=== PATIENT | female | born 1960 | race Caucasian/White ===

== ENCOUNTER → 2017-01-30 | Outpatient (REF) | payer OTHER ==
[2017-01-30 17:10] LABS: ALBUMIN 3.7 GM/DL (3.2-5.2); ALBUMIN/GLOBULIN RATIO 1.28 (1.00-1.93); ALKALINE PHOSPHATASE 80 U/L (45-117); ALT/SGPT 36 U/L (12-78); ANION GAP 9 MEQ/L (8-16); AST/SGOT 27 U/L (15-37); BILIRUBIN,TOTAL 0.4 MG/DL (0.2-1.0); BLOOD UREA NITROGEN 11 MG/DL (7-18); CALCIUM LEVEL 9.1 MG/DL (8.5-10.1); CARBON DIOXIDE LEVEL 33 MEQ/L (21-32); CHLORIDE LEVEL 100 MEQ/L (98-107); CHOLESTEROL LEVEL 212 MG/DL (<200); CREATININE FOR GFR 0.68 MG/DL (0.55-1.02); GLOMERULAR FILTRATION RATE > 60.0 (>51); GLUCOSE, FASTING 125 MG/DL (70-105); POTASSIUM SERUM 3.5 MEQ/L (3.5-5.1); SODIUM LEVEL 142 MEQ/L (136-145); TOTAL PROTEIN 6.6 GM/DL (6.4-8.2); TRIGLYCERIDES LEVEL 325 MG/DL (<150)
== END ==
LOC: M SFHCSACK 12:00
PROVIDERS: ATTEND Physician Assistant
DX: I10 Essential (primary) hypertension (principal); E11.9 Type 2 diabetes mellitus without complications; E78.5 Hyperlipidemia, unspecified; E03.9 Hypothyroidism, unspecified

== ENCOUNTER → 2017-05-13 | Outpatient (REF) | payer OTHER ==
[~2017-05-13] MED LIST: ALBU17IN INH; CALC600T31 PO; CITR500T PO; CLON1TAB PO; DICY1CAP8 PO; HUMA75VL SC; LOSA100T5 PO; MAGN500C PO; MELA10CA PO; METF10004 PO; METO1TAB33 PO; OMEG1CAP16 PO; PARO20TA4 PO; PROBCAP4 PO; SYNT50TA PO; VITA100067 PO; VITA500T PO
[2017-05-13 16:24] LABS: ALBUMIN 3.4 GM/DL (3.2-5.2); ALBUMIN/GLOBULIN RATIO 1.31 (1.00-1.93); ALKALINE PHOSPHATASE 73 U/L (45-117); ALT/SGPT 42 U/L (12-78); ANION GAP 6 MEQ/L (8-16); AST/SGOT 25 U/L (15-37); BILIRUBIN,TOTAL 0.4 MG/DL (0.2-1.0); BLOOD UREA NITROGEN 9 MG/DL (7-18); CALCIUM LEVEL 8.9 MG/DL (8.5-10.1); CARBON DIOXIDE LEVEL 32 MEQ/L (21-32); CHLORIDE LEVEL 101 MEQ/L (98-107); CHOLESTEROL LEVEL 179 MG/DL (<200); CREATININE FOR GFR 0.63 MG/DL (0.55-1.02); FREE T4 1.11 NG/DL (0.76-1.46); GLOMERULAR FILTRATION RATE > 60.0 (>51); GLUCOSE, FASTING 91 MG/DL (70-105); POTASSIUM SERUM 3.2 MEQ/L (3.5-5.1); SODIUM LEVEL 139 MEQ/L (136-145); TRIGLYCERIDES LEVEL 216 MG/DL (<150)
[2017-05-13 16:25] LABS: BASO # 0.1 K/mm3 (0.0-0.2); BASO % 0.7 % (0.0-1.0); EOS # 0.4 K/mm3 (0.0-0.50); EOS % 3.5 % (0.0-3.0); LARGE UNSTAINED CELL # 0.2 K/mm3 (0.0-0.4); LARGE UNSTAINED CELL % 1.7 % (0.0-4.0); LYMPH # 3.5 K/mm3 (1.5-4.5); LYMPH % 32.7 % (24.0-44.0); MEAN CORPUSCULAR HEMOGLOBIN 30.4 pg (27.0-33.0); MEAN CORPUSCULAR HGB CONC 34.3 g/dl (32.0-36.5); MEAN CORPUSCULAR VOLUME 88.6 fl (80.0-96.0); MONO # 0.6 K/mm3 (0.0-0.8); MONO % 5.5 % (0.0-5.0); NEUTROPHILS # 5.8 K/mm3 (1.8-7.7); NEUTROPHILS % 55.9 % (36.0-66.0); PLATELET COUNT, AUTOMATED 325 k/mm3 (150-450); RED CELL DISTRIBUTION WIDTH 13.6 % (11.5-14.5); WHITE BLOOD COUNT 10.3 K/mm3 (4.0-10.0)
== END ==
LOC: M SFHCSACK 11:36
PROVIDERS: ATTEND Physician Assistant
DX: I10 Essential (primary) hypertension (principal); E03.9 Hypothyroidism, unspecified; E11.9 Type 2 diabetes mellitus without complications; E78.5 Hyperlipidemia, unspecified

== ENCOUNTER 2017-05-22 07:36 | Day surgery (SDC) | payer OTHER ==
[~2017-05-22] VITALS: Ht 167.6 cm; Wt 95.3 kg
[~2017-05-22 07:36] MED LIST changes: +ACETAMINOPHEN 325 MG TAB PO PRN; +ACETYLCHOLINE OPHTH SOLN 1% 2ML (MIOCHOL-E) As Ordered ONE; +BALANCED SALT IRRIGATION SOLUTION 500ML BAG (FOR OR EYE MACHINE) As Ordered ONE; +CYCLOPENTOLATE 2% OPHTH SOLN 2ML BTL OD ONE; +HEALON DUET (HEALON 10MG/ML 0.55ML & HEALON ENDOCOAT 30MG/ML 0.85ML) As Ordered ONE; +LIDOCAINE 1% SDV 5 ML VIAL As Ordered ONE; +LIDOCAINE 4% INJ 5 ML AMP OU ONE; +OFLOXACIN 0.3 % (OCUFLOX) OPTH SOL 5ML OD ONE; +PHENYLEPHRINE 2.5% OPHTH SOL 2ML OD ONE; +POVIDONE-IODINE 5% OPHTH PREP SOL 30ML As Ordered ONE; +PROPARACAINE 0.5% OPHTH SOL 15ML XX PRN; +TROPICAMIDE 1% OPHTH SOLN 2ML OD ONE
[2017-05-22] MEDS ORDERED: LIDOCAINE 4% INJ 5 ML AMP As Ordered ONE (09:37)
[2017-05-22] MEDS ORDERED: LR 500 ML IV ONE (09:45)
[2017-05-22] MEDS ORDERED: fentaNYL 100 MCG/2 ML INJECTION (J3010) As Ordered ONE (10:15)
[2017-05-22] MEDS ORDERED: MIDAZOLAM INJ 2 MG/2 ML VIAL (J2250) As Ordered ONE (10:15)
[2017-05-22] MEDS ORDERED: AcetaZOLAMIDE 500 MG ER CAP As Ordered ONE (10:51)
[2017-05-22] MEDS ORDERED: TRIMETHOBENZAMIDE 300 MG CAP PO PRN (11:00)
[2017-05-22] MEDS ORDERED: AcetaZOLAMIDE 500 MG ER CAP PO ONE (11:00)
[2017-05-22] MEDS ORDERED: KETOROLAC 0.5% OPHTH SOLN OD ONE (11:00)
[2017-05-22 11:15] VITALS: BP 141/73
--- NOTE | 2017-05-23 10:32 | RO ---
DATE OF PROCEDURE: 05/22/2017 PREPROCEDURE DIAGNOSIS: Age related nuclear cataract right eye. POSTPROCEDURE DIAGNOSIS: Age related nuclear cataract right eye. PROCEDURE: Femtosecond cataract extraction with posterior chamber intraocular lens. The lens used was [id number] diopter. SURGEON: Angelika Foreman MD PURCHASING INTERN: ANESTHESIA: Topical sedation. DESCRIPTION OF PROCEDURE: The patient was brought to the operating room and put under the femtosecond laser. A lid speculum was placed between the lids, and the laser was lowered on. Docking was achieved with good suction. The laser procedure was performed with no difficulty. The laser was then removed from the eye, and the lid speculum was removed. The laser was moved over to the operating microscope and prepped and draped in the usual fashion. A lid speculum was placed between the lids. The eye was fixated. The side port incision was opened up with a spatula. 1% non-preservative lidocaine was instilled; then, viscoelastic was instilled. The main incision was then opened with the spatula. The capsulorrhexis was removed from the eye with the Utrata forceps. The lens was then hydrodissected, and a phacoemulsification unit was used to make a groove in the nucleus and one meridian. The nucleus was cracked into four quadrants, and then each quadrant was removed with the phacoemulsification unit. Any remaining cortex was removed with the irrigation and aspiration (I and A) unit. The capsular bag was refilled with viscoelastic. A posterior chamber intraocular lens was placed in the capsular bag. The remaining viscoelastic was removed. The wound was hydrated. Miochol and cefuroxime were instilled. The wound was watertight. The patient tolerated the procedure well and went to the recovery room in stable condition.
== END 2017-05-22 11:15 | disposition home or self-care (01) ==
LOC: M SDC 07:36
PROVIDERS: ATTEND Ophthalmology
DX: H25.11 Age-related nuclear cataract, right eye (principal); I10 Essential (primary) hypertension; E11.9 Type 2 diabetes mellitus without complications; E03.9 Hypothyroidism, unspecified; K76.0 Fatty (change of) liver, not elsewhere classified; K52.9 Noninfective gastroenteritis and colitis, unspecified; K21.9 Gastro-esophageal reflux disease without esophagitis; M32.9 Systemic lupus erythematosus, unspecified; F41.9 Anxiety disorder, unspecified; J45.909 Unspecified asthma, uncomplicated; R51 Headache; R06.83 Snoring; Z88.0 Allergy status to penicillin; Z88.1 Allergy status to other antibiotic agents; Z79.899 Other long term (current) drug therapy; Z79.4 Long term (current) use of insulin
CPT/HCPCS: 66984; J2250; J3010

== ENCOUNTER → 2017-07-17 | Outpatient (CLI) | payer OTHER ==
[~2017-07-17] MED LIST changes: -ACETAMINOPHEN 325 MG TAB PO PRN; -ACETYLCHOLINE OPHTH SOLN 1% 2ML (MIOCHOL-E) As Ordered ONE; -BALANCED SALT IRRIGATION SOLUTION 500ML BAG (FOR OR EYE MACHINE) As Ordered ONE; -CYCLOPENTOLATE 2% OPHTH SOLN 2ML BTL OD ONE; -HEALON DUET (HEALON 10MG/ML 0.55ML & HEALON ENDOCOAT 30MG/ML 0.85ML) As Ordered ONE; -LIDOCAINE 1% SDV 5 ML VIAL As Ordered ONE; -LIDOCAINE 4% INJ 5 ML AMP OU ONE; -OFLOXACIN 0.3 % (OCUFLOX) OPTH SOL 5ML OD ONE; -PHENYLEPHRINE 2.5% OPHTH SOL 2ML OD ONE; -POVIDONE-IODINE 5% OPHTH PREP SOL 30ML As Ordered ONE; -PROPARACAINE 0.5% OPHTH SOL 15ML XX PRN; -TROPICAMIDE 1% OPHTH SOLN 2ML OD ONE
--- NOTE | 2017-07-24 08:39 | REPMRS ---
Patient History The patient states she has not had a clinical breast exam in over a year. Family history of breast cancer in paternal grandmother at age 58. Digital Woman Screen Mammo: July 17, 2017 - Exam #: [id number] Bilateral CC and MLO view(s) were taken. Technologist: Susy Castro, Technologist Prior study comparison: 2013, digital bilateral screening mammo, performed at [facility]. October 12, 2010, digital bilateral screening mammo, performed at [facility]. FINDINGS: There are scattered fibroglandular densities. There has been no change in the appearance of the mammogram from the prior studies. There is a mild amount of scattered fibroglandular density which is fairly symmetric. There is no interval development of dominant mass, architectural distortion, or clustered microcalcification suggestive of malignancy. ASSESSMENT: BI-RADS/ACR category 1 mammogram. Negative. Recommendation Routine screening mammogram in 1 year (for women over age 40). This mammogram was interpreted with the aid of an FDA-approved computer-aided dectection system. Electronically Signed By: Sukh Ann MD 07/24/17 0839
== END ==
LOC: M WHC 15:22
PROVIDERS: ATTEND Physician Assistant
DX: Z12.31 Encounter for screening mammogram for malignant neoplasm of breast (principal); Z80.3 Family history of malignant neoplasm of breast

== ENCOUNTER 2017-10-02 10:23 | Day surgery (SDC) | payer OTHER ==
[~2017-10-02] VITALS: Ht 167.6 cm; Wt 101.1 kg
[~2017-10-02 10:23] MED LIST changes: +ACETAMINOPHEN 325 MG TAB PO PRN; +BSS with VANC/TOB/EPI for EYE CASES IR ONE; +CO Q100C10 PO; +CYCLOPENTOLATE 2% OPHTH SOLN 2ML BTL OS ONE; +LIDOCAINE 3.5 % 1ML OPHTH TOPICAL GEL OU ONE; +LUTECAP2 PO; +MIDAZOLAM INJ 2 MG/2 ML VIAL (J2250) As Ordered ONE; +OFLOXACIN 0.3 % (OCUFLOX) OPTH SOL 5ML OS ONE; +PHENYLEPHRINE 2.5% OPHTH SOL 2ML OS ONE; +PHENYLEPHRINE HCL 10 % OPHTH. SOL 5ML OS PRN; +PROPARACAINE 0.5% OPHTH SOL 15ML OS PRN; +SUPETAB25 PO; +TROPICAMIDE 1% OPHTH SOLN 2ML OS ONE; +VITA100054 PO; +fentaNYL 100 MCG/2 ML INJECTION (J3010) As Ordered ONE
[2017-10-02] MEDS ORDERED: LR 1,000 ML IV ONE (10:30)
[2017-10-02] MEDS ORDERED: TRIMETHOBENZAMIDE 300 MG CAP PO PRN (10:30)
[2017-10-02] MEDS ORDERED: AcetaZOLAMIDE 500 MG ER CAP PO ONE (10:30)
[2017-10-02] MEDS ORDERED: TROPICAMIDE 1% OPHTH SOLN 2ML As Ordered ONE (11:41)
[2017-10-02] MEDS ORDERED: PHENYLEPHRINE 2.5% OPHTH SOL 2ML As Ordered ONE (11:41)
[2017-10-02] MEDS ORDERED: OFLOXACIN 0.3 % (OCUFLOX) OPTH SOL 5ML As Ordered ONE (11:41)
[2017-10-02] MEDS ORDERED: CYCLOPENTOLATE 2% OPHTH SOLN 2ML BTL As Ordered ONE (11:41)
[2017-10-02] MEDS ORDERED: HEALON DUET (HEALON 10MG/ML 0.55ML & HEALON ENDOCOAT 30MG/ML 0.85ML) As Ordered ONE (12:42)
[2017-10-02] MEDS ORDERED: POVIDONE-IODINE 5% OPHTH PREP SOL 30ML As Ordered ONE (12:42)
[2017-10-02] MEDS ORDERED: LIDOCAINE 1% SDV 5 ML VIAL As Ordered ONE (12:42)
[2017-10-02] MEDS ORDERED: MOXIFLOXACIN IN BSS 0.25MG/0.25ML INTRACAMERAL INJ (OR EYE ONLY)(J2280) As Ordered ONE (12:42)
[2017-10-02] MEDS ORDERED: TRIAMCINOLONE PRES FR 40 MG/ML 1ML(TRIESENCE)(OR EYE ONLY)(J3300 PER 1MG) As Ordered ONE (12:42)
--- NOTE | 2017-10-02 13:42 | RO ---
DATE OF PROCEDURE: 10/02/2017 DATE OF PROCEDURE: PREPROCEDURE DIAGNOSIS: Cataract of left eye. POSTPROCEDURE DIAGNOSIS: Cataract of left eye. PROCEDURE: Femtosecond laser and phacoemulsification of the intraocular lens with lens implantation left eye. Intraocular lens power used was Hoya, 14.5 diopter. SURGEON: Sheryl Arellano MD AUTOMATIC LOG CUT OFF SAWYER: None. ANESTHESIA: Local IV standby. FINDINGS: Cataract of left eye. COMPLICATIONS: None. DESCRIPTION OF PROCEDURE: The patient was brought to the operating room and laid in supine position. A lid speculum was placed, and patient was brought under the femtosecond laser. After the satisfactory placement of the patient interface, primary incision, secondary incision, and arcuate incisions with lens fragmentation was done without any complication per plan. The patients interface was then removed and lid speculum removed. Patient was placed under the microscope. The eye was prepped and draped in a sterile fashion for ophthalmic surgery. Lid speculum was placed. The secondary incision was opened, and EndoCoat was injected into the anterior chamber. The temporal clear corneal incision was then opened and capsulorrhexis removed, followed by hydrodissection. This was followed by phacoemulsification of the lens within the capsular bag. Cortical material was then aspirated, and Healon was injected into the capsular bag. Intraocular lens was then placed. Excess Healon was aspirated. Wound was hydrated. The lid speculum was removed, and patient was returned to the recovery room in stable condition.
[2017-10-02 13:55] VITALS: BP 161/79
== END 2017-10-02 14:12 | disposition home or self-care (01) ==
LOC: M SDC 10:23
PROVIDERS: ATTEND Ophthalmology
DX: H26.9 Unspecified cataract (principal); I10 Essential (primary) hypertension; E10.9 Type 1 diabetes mellitus without complications; E03.9 Hypothyroidism, unspecified; K76.0 Fatty (change of) liver, not elsewhere classified; R19.7 Diarrhea, unspecified; K21.9 Gastro-esophageal reflux disease without esophagitis; F41.9 Anxiety disorder, unspecified; F32.9 Major depressive disorder, single episode, unspecified; R51 Headache; J45.909 Unspecified asthma, uncomplicated; E55.9 Vitamin D deficiency, unspecified; R06.83 Snoring; E78.5 Hyperlipidemia, unspecified; Z88.0 Allergy status to penicillin; Z88.1 Allergy status to other antibiotic agents; Z79.899 Other long term (current) drug therapy; Z79.4 Long term (current) use of insulin; Z79.82 Long term (current) use of aspirin; Z90.710 Acquired absence of both cervix and uterus
CPT/HCPCS: 36415; 66984; 82947; J2250; J2280; J3010; J3300

== ENCOUNTER 2017-11-25 14:15 | Emergency (ER) | payer OTHER ==
[2017-11-25 18:26] LABS: KETONE, URINE AUTO RFX NEGATIVE (NEGATIVE); MUCUS, URINE RFX SMALL (NEGATIVE); NITRITE, URINE AUTO RFX NEGATIVE (NEGATIVE); RBC, URINE AUTO RFX 9 /HPF (0-3); SPECIFIC GRAVITY UR AUTO RFX 1.017 (1.002-1.035); SQUAM EPITHELIAL CELL UR AURFX 1 /HPF (0-6)
[2017-11-25 18:59] LABS: LEUKOCYTE ESTERASE UR AUTO RFX 2+ (NEGATIVE); WBC, URINE AUTO RFX 34 /HPF (0-3)
[2017-11-25 19:09] LABS: BASO # 0.1 10^3/uL (0.0-0.2); BASO % 0.6 % (0.0-1.0); EOS # 0.4 10^3/uL (0.0-0.50); EOS % 2.5 % (0.0-3.0); HEMATOCRIT 39.8 % (36.0-47.0); HEMOGLOBIN 13.8 g/dl (12.0-16.0); IMMATURE GRANULOCYTE # 0.1 10^3/uL (0-0); IMMATURE GRANULOCYTE % 0.8 % (0-0); LYMPH # 3.2 10^3/uL (1.5-4.5); LYMPH % 22.8 % (24.0-44.0); MEAN CORPUSCULAR HGB CONC 34.7 g/dl (32.0-36.5); MEAN CORPUSCULAR VOLUME 86.5 fl (80.0-96.0); MONO # 0.8 10^3/uL (0.0-0.8); MONO % 5.7 % (0.0-5.0); NEUTROPHILS # 9.6 10^3/uL (1.8-7.7); NEUTROPHILS % 67.6 % (36.0-66.0); PLATELET COUNT, AUTOMATED 284 10^3/uL (150-450); RED CELL DISTRIBUTION WIDTH 13.2 % (11.5-14.5); WHITE BLOOD COUNT 14.2 10^3/uL (4.0-10.0)
[2017-11-25] MEDS: ACETAMINOPHEN 325 MG TAB PO (19:13)
[2017-11-25 19:21] LABS: POS COUNT POS FLAG
[2017-11-25 19:34] LABS: ALBUMIN 3.4 GM/DL (3.2-5.2); ALKALINE PHOSPHATASE 65 U/L (45-117); ALT/SGPT 32 U/L (12-78); ANION GAP 4 MEQ/L (8-16); AST/SGOT 15 U/L (7-37); BILIRUBIN,TOTAL 0.4 MG/DL (0.2-1.0); BLOOD UREA NITROGEN 13 MG/DL (7-18); CALCIUM LEVEL 8.5 MG/DL (8.5-10.1); CARBON DIOXIDE LEVEL 33 MEQ/L (21-32); CHLORIDE LEVEL 98 MEQ/L (98-107); CREATININE FOR GFR 0.75 MG/DL (0.55-1.30); GLOMERULAR FILTRATION RATE > 60.0 (>51); GLUCOSE, FASTING 117 MG/DL (70-100); POTASSIUM SERUM 3.9 MEQ/L (3.5-5.1); SODIUM LEVEL 135 MEQ/L (136-145); TOTAL PROTEIN 6.5 GM/DL (6.4-8.2)
[2017-11-25] MEDS: CIPROFLOXACIN 500 MG TAB PO (20:30)
== END 2017-11-25 20:30 | disposition home or self-care (01) ==
LOC: M ED 14:15
DX: I10 Essential (primary) hypertension (principal); N10 Acute pyelonephritis; E11.9 Type 2 diabetes mellitus without complications; E03.9 Hypothyroidism, unspecified; Z88.1 Allergy status to other antibiotic agents; Z88.0 Allergy status to penicillin; Z82.61 Family history of arthritis; Z82.49 Family history of ischemic heart disease and other diseases of the circulatory system
CPT/HCPCS: 71046

== ENCOUNTER → 2017-11-25 | Outpatient (REF) | payer OTHER ==
[2017-11-25 12:16] LABS: BASO # 0.1 10^3/uL (0.0-0.2); BASO % 0.6 % (0.0-1.0); EOS # 0.3 10^3/uL (0.0-0.50); EOS % 2.7 % (0.0-3.0); HEMATOCRIT 40.8 % (36.0-47.0); HEMOGLOBIN 13.9 g/dl (12.0-16.0); IMMATURE GRANULOCYTE # 0.1 10^3/uL (0-0); IMMATURE GRANULOCYTE % 0.6 % (0-0); LYMPH % 24.6 % (24.0-44.0); MEAN CORPUSCULAR HEMOGLOBIN 29.8 pg (27.0-33.0); MEAN CORPUSCULAR HGB CONC 34.1 g/dl (32.0-36.5); MEAN CORPUSCULAR VOLUME 87.4 fl (80.0-96.0); MONO # 0.8 10^3/uL (0.0-0.8); MONO % 6.3 % (0.0-5.0); NEUTROPHILS % 65.2 % (36.0-66.0); PLATELET COUNT, AUTOMATED 326 10^3/uL (150-450); RED BLOOD COUNT 4.67 10^6/uL (4.00-5.40); RED CELL DISTRIBUTION WIDTH 13.2 % (11.5-14.5); WHITE BLOOD COUNT 12.3 10^3/uL (4.0-10.0)
[2017-11-25 12:49] LABS: ESTIMATED AVERAGE GLUCOSE 214 MG/DL (60-110); HEMOGLOBIN A1c 9.1 %
[2017-11-25 12:55] LABS: ALBUMIN 3.3 GM/DL (3.2-5.2); ALBUMIN/GLOBULIN RATIO 1.18 (1.00-1.93); ALKALINE PHOSPHATASE 84 U/L (45-117); ALT/SGPT 33 U/L (12-78); ANION GAP 7 MEQ/L (8-16); AST/SGOT 19 U/L (7-37); BILIRUBIN,TOTAL 0.4 MG/DL (0.2-1.0); BLOOD UREA NITROGEN 14 MG/DL (7-18); CALCIUM LEVEL 8.8 MG/DL (8.5-10.1); CARBON DIOXIDE LEVEL 33 MEQ/L (21-32); CHLORIDE LEVEL 97 MEQ/L (98-107); CREATININE FOR GFR 0.74 MG/DL (0.55-1.30); GLOMERULAR FILTRATION RATE > 60.0 (>51); GLUCOSE, FASTING 199 MG/DL (70-100); POTASSIUM SERUM 3.7 MEQ/L (3.5-5.1); SODIUM LEVEL 137 MEQ/L (136-145); TOTAL PROTEIN 6.1 GM/DL (6.4-8.2)
== END ==
LOC: M SFHCSACK 10:25
DX: R34 Anuria and oliguria (principal); R05 Cough; E11.9 Type 2 diabetes mellitus without complications

== ENCOUNTER 2017-12-04 15:20 | Emergency (ER) | payer OTHER ==
[2017-12-04 16:31] LABS: KETONE, URINE AUTO RFX NEGATIVE (NEGATIVE); LEUKOCYTE ESTERASE UR AUTO RFX NEGATIVE (NEGATIVE); NITRITE, URINE AUTO RFX NEGATIVE (NEGATIVE); RBC, URINE AUTO RFX 8 /HPF (0-3); SPECIFIC GRAVITY UR AUTO RFX 1.014 (1.002-1.035); SQUAM EPITHELIAL CELL UR AURFX 0 /HPF (0-6); WBC, URINE AUTO RFX 3 /HPF (0-3)
[2017-12-04 17:05] LABS: BASO # 0.1 10^3/uL (0.0-0.2); BASO % 0.7 % (0.0-1.0); EOS # 0.3 10^3/uL (0.0-0.50); EOS % 2.5 % (0.0-3.0); HEMATOCRIT 38.5 % (36.0-47.0); HEMOGLOBIN 13.6 g/dl (12.0-16.0); IMMATURE GRANULOCYTE % 0.8 % (0-3.0); LYMPH # 2.7 10^3/uL (1.5-4.5); LYMPH % 23.4 % (24.0-44.0); MEAN CORPUSCULAR HEMOGLOBIN 29.9 pg (27.0-33.0); MEAN CORPUSCULAR HGB CONC 35.3 g/dl (32.0-36.5); MEAN CORPUSCULAR VOLUME 84.6 fl (80.0-96.0); MONO # 0.8 10^3/uL (0.0-0.8); MONO % 6.7 % (0.0-5.0); NEUTROPHILS # 7.5 10^3/uL (1.8-7.7); NEUTROPHILS % 65.9 % (36.0-66.0); PLATELET COUNT, AUTOMATED 320 10^3/uL (150-450); RED BLOOD COUNT 4.55 10^6/uL (4.00-5.40); RED CELL DISTRIBUTION WIDTH 13.1 % (11.5-14.5); WHITE BLOOD COUNT 11.4 10^3/uL (4.0-10.0)
[2017-12-04] MEDS ORDERED: ISOVUE-370 76% 100ML VIAL (Q9967) As Ordered (17:43)
[2017-12-04 17:45] LABS: ALBUMIN 3.2 GM/DL (3.2-5.2); ALBUMIN/GLOBULIN RATIO 1.23 (1.00-1.93); ALKALINE PHOSPHATASE 66 U/L (45-117); ALT/SGPT 34 U/L (12-78); ANION GAP 9 MEQ/L (8-16); AST/SGOT 20 U/L (7-37); BILIRUBIN,TOTAL 0.3 MG/DL (0.2-1.0); BLOOD UREA NITROGEN 10 MG/DL (7-18); CALCIUM LEVEL 8.5 MG/DL (8.5-10.1); CARBON DIOXIDE LEVEL 28 MEQ/L (21-32); CHLORIDE LEVEL 100 MEQ/L (98-107); GLOMERULAR FILTRATION RATE > 60.0 (>51); GLUCOSE, FASTING 144 MG/DL (70-100); POTASSIUM SERUM 4.1 MEQ/L (3.5-5.1); SODIUM LEVEL 137 MEQ/L (136-145); TOTAL PROTEIN 5.8 GM/DL (6.4-8.2)
[2017-12-04 17:46] LABS: LACTIC ACID SEPSIS PROTOCOL 1.9 MMOL/L (0.4-2.0)
[2017-12-04] MEDS: cloNIDine 0.2 MG TAB PO (20:30)
== END 2017-12-04 21:35 | disposition home or self-care (01) ==
LOC: M ED 15:20
DX: M54.5 Low back pain (principal); I10 Essential (primary) hypertension; R60.9 Edema, unspecified; K76.0 Fatty (change of) liver, not elsewhere classified; E11.9 Type 2 diabetes mellitus without complications; Z79.2 Long term (current) use of antibiotics; Z79.899 Other long term (current) drug therapy; Z88.1 Allergy status to other antibiotic agents; Z88.0 Allergy status to penicillin
CPT/HCPCS: Q9967

== ENCOUNTER 2017-12-05 19:37 | Inpatient (IN) | payer OTHER ==
[2017-12-05] MEDS: LABETALOL HCL 100 MG/20 ML VIAL IV ×2 (20:38→22:14)
[2017-12-05] MEDS: METOCLOPRAMIDE INJ 10MG/2ML VIAL (J2765) IV (20:39)
[2017-12-05] MEDS: diphenhydrAMINE INJ 50MG/ML VIAL (J1200) IV (20:39)
[2017-12-05] MEDS: NS 1,000 ML IV (20:39)
[2017-12-05 21:02] LABS: ANION GAP 10 MEQ/L (8-16); BLOOD UREA NITROGEN 13 MG/DL (7-18); CALCIUM LEVEL 8.5 MG/DL (8.5-10.1); CARBON DIOXIDE LEVEL 28 MEQ/L (21-32); CHLORIDE LEVEL 93 MEQ/L (98-107); CREATININE FOR GFR 0.79 MG/DL (0.55-1.30); GLOMERULAR FILTRATION RATE > 60.0 (>51); GLUCOSE, FASTING 194 MG/DL (70-100); POTASSIUM SERUM 3.8 MEQ/L (3.5-5.1); SODIUM LEVEL 131 MEQ/L (136-145)
[2017-12-05] MEDS: MORPHINE 4 MG/ML 1ML VIAL (J2270) IV (22:13)
[2017-12-05] MEDS: KETOROLAC 30 MG/ML VIAL (J1885) IV (22:13)
[2017-12-06] MEDS: LABETALOL 100 MG TAB PO (00:07)
[2017-12-06] MEDS: MAG SULF 1GM/100ML (MAG RUN) 1 GM in APPROPRIATE DILUENT 1 EA IV (00:07)
[2017-12-06] MEDS: LABETALOL HCL 100 MG/20 ML VIAL IV (00:08)
[2017-12-06] MEDS ORDERED: niCARdipine IV 40 MG in APPROPRIATE DILUENT 1 EA IV (00:15)
[2017-12-06 00:44] LABS: HEMATOCRIT 37.8 % (36.0-47.0); HEMOGLOBIN 13.4 g/dl (12.0-16.0); MEAN CORPUSCULAR HGB CONC 35.4 g/dl (32.0-36.5); MEAN CORPUSCULAR VOLUME 84.6 fl (80.0-96.0); PLATELET COUNT, AUTOMATED 322 10^3/uL (150-450); RED BLOOD COUNT 4.47 10^6/uL (4.00-5.40); RED CELL DISTRIBUTION WIDTH 12.8 % (11.5-14.5); WHITE BLOOD COUNT 16.9 10^3/uL (4.0-10.0)
[2017-12-06] MEDS ORDERED: GLUCOSE 4 GM CHEW TABLET PO (00:45)
[2017-12-06] MEDS ORDERED: GLUCAGON FOR INJ 1 MG VIAL (J1610) SC (00:45)
[2017-12-06] MEDS ORDERED: DEXTROSE 50% 50 ML SYRINGE IV (00:45)
[2017-12-06 01:35] LABS: CK-MB VALUE MASS 1.1 NG/ML (0.0-3.6); CPK CREATINE PHOSPHOKINASE 101 U/L (26-192); MB/CK RELATIVE INDEX 1.08 (< OR =4); TROPONIN I < 0.02 NG/ML (< 0.10)
[2017-12-06] MEDS ORDERED: DICYCLOMINE 10 MG CAP PO (02:00)
[2017-12-06] MEDS ORDERED: POLYVINYL ALCOHOL OPHTH SOLN 15 ML(LIQUITEARS) OU (02:00)
[2017-12-06] MEDS ORDERED: ACYCLOVIR 5% OINT 15GM EXT (02:00)
[2017-12-06] MEDS ORDERED: ALBUTEROL SULFATE 2.5 MG/0.5 ML INH NEB SOLN NEB (02:00)
[2017-12-06 02:27] LABS: BASO # 0.1 10^3/uL (0.0-0.2); BASO % 0.3 % (0.0-1.0); EOS % 0.1 % (0.0-3.0); IMMATURE GRANULOCYTE % 0.7 % (0-3.0); LYMPH # 1.2 10^3/uL (1.5-4.5); LYMPH % 7.2 % (24.0-44.0); MONO # 0.4 10^3/uL (0.0-0.8); MONO % 2.3 % (0.0-5.0); NEUTROPHILS # 15.2 10^3/uL (1.8-7.7); NEUTROPHILS % 89.4 % (36.0-66.0)
[2017-12-06] MEDS: LEVEMIR (INSULIN DETEMIR) 1 UNITS/0.01ML SC ×3 (02:51→20:48)
[2017-12-06] MEDS: clonazePAM 1 MG TAB PO ×2 (02:52→20:42)
[2017-12-06] MEDS: ACETAMINOPHEN TAB 650MG DOSE (2X325MG) PO ×4 (02:53→20:43)
[2017-12-06 02:57] LABS: BEDSIDE GLUCOSE 277 MG/DL (70-105)
[2017-12-06] MEDS: HumaLOG INSULIN (NovoLOG) PER UNIT SC ×5 (03:09→20:44)
[2017-12-06] MEDS: prednisoLONE ACET 1% OPHTH SUSP 5ML OS ×3 (03:36→20:44)
[2017-12-06] MEDS: NS 1,000 ML IV ×2 (05:50→14:37)
[2017-12-06 06:51] LABS: CPK CREATINE PHOSPHOKINASE 104 U/L (26-192); MB/CK RELATIVE INDEX 0.96 (< OR =4); TROPONIN I < 0.02 NG/ML (< 0.10)
[2017-12-06 08:13] LABS: BEDSIDE GLUCOSE 198 MG/DL (70-105)
[2017-12-06] MEDS: PARoxetine 20 MG TAB PO (08:21)
[2017-12-06] MEDS: ASPIRIN 81 MG ENTERIC TAB PO (08:21)
[2017-12-06] MEDS: LEVOTHYROXINE 50MCG TABLET (0.05MG) PO (08:21)
[2017-12-06] MEDS: METOPROLOL SUCC (TopROL XL) 100MG *XL* TAB PO (08:22)
[2017-12-06] MEDS: LACTOBACILLUS ACIDOPHILUS CAP (BACID) PO (08:22)
[2017-12-06] MEDS: MAGNESIUM CHLORIDE 64 MG TABCR (SLO MAG) PO (08:23)
[2017-12-06] MEDS: VITAMIN B COMPLEX/VIT C CAP PO (08:23)
[2017-12-06] MEDS: OCUVITE 1 TAB PO (08:23)
[2017-12-06] MEDS: ASCORBIC ACID 500 MG TAB PO (08:23)
[2017-12-06] MEDS: VITAMIN D (CHOLECALCIFEROL) 400 INTERNATIONAL UNITS TAB PO (08:24)
[2017-12-06] MEDS ORDERED: hydroCHLOROthiazide 25 MG TAB PO (09:00)
[2017-12-06] MEDS ORDERED: LEVOTHYROXINE 50MCG TABLET (0.05MG) PO (09:00)
[2017-12-06] MEDS ORDERED: IRBESARTAN 150 MG TAB PO (09:00)
[2017-12-06 12:06] LABS: BEDSIDE GLUCOSE 132 MG/DL (70-105)
[2017-12-06 12:22] LABS: APPEARANCE, URINE CLOUDY (CLEAR); BACTERIA, URINE AUTO 1+ (NEGATIVE); BILIRUBIN, URINE AUTO NEGATIVE (NEGATIVE); BLOOD, URINE BLOOD NEGATIVE (NEGATIVE); COLOR, URINE YELLOW (YELLOW); GLUCOSE, URINE (UA) AUTO 1+ mg/dL (NEGATIVE); KETONE, URINE AUTO NEGATIVE (NEGATIVE); LEUKOCYTE ESTERASE, URINE AUTO 1+ (NEGATIVE); MUCUS, URINE SMALL (NEGATIVE); NITRITE, URINE AUTO NEGATIVE (NEGATIVE); PROTEIN, URINE AUTO 2+ mg/dL (NEGATIVE); RBC, URINE AUTO 11 /HPF (0-3); SPECIFIC GRAVITY URINE AUTO 1.024 (1.002-1.035); SQUAMOUS EPITHELIAL CELL UR AU 3 /HPF (0-6); UROBILINOGEN, URINE AUTO 0.2 mg/dL (0.0-2.0); WBC, URINE AUTO 71 /HPF (0-3)
[2017-12-06 12:39] LABS: CPK CREATINE PHOSPHOKINASE 191 U/L (26-192); TROPONIN I < 0.02 NG/ML (< 0.10)
[2017-12-06 12:40] LABS: CK-MB VALUE MASS 1.3 NG/ML (0.0-3.6); MB/CK RELATIVE INDEX 0.68 (< OR =4)
[2017-12-06 13:29] LABS: MAU/CREAT RATIO 290.5 MCG/MG (0.0-30.0)
[2017-12-06] MEDS: ONDANSETRON 4MG/2ML VIAL (J2405) IV ×2 (16:06→20:44)
[2017-12-06 17:05] LABS: BEDSIDE GLUCOSE 159 MG/DL (70-105)
[2017-12-06] MEDS: ASPIRIN ENTERIC 325 MG TAB PO (17:59)
[2017-12-06] MEDS: hydroCHLOROthiazide 25 MG TAB PO (19:39)
[2017-12-06 20:55] LABS: BEDSIDE GLUCOSE 194 MG/DL (70-105)
[2017-12-06 21:18] LABS: AMPHETAMINES LEVEL URINE NEGATIVE (NEGATIVE); BARBITURATES URINE NEGATIVE (NEGATIVE); BENZODIAZEPINES URINE NEGATIVE (NEGATIVE); CANNABINOIDS URINE NEGATIVE (NEGATIVE); COCAINE METABOLITE URINE NEGATIVE (NEGATIVE); METHADONE URINE NEGATIVE (NEGATIVE); OPIATES URINE POSITIVE (NEGATIVE); PHENCYCLIDINE URINE NEGATIVE (NEGATIVE)
[2017-12-07] MEDS: ASPIRIN ENTERIC 325 MG TAB PO ×3 (06:06→22:44)
[2017-12-07] MEDS: LEVOTHYROXINE 50MCG TABLET (0.05MG) PO (06:06)
[2017-12-07] MEDS ORDERED: ASPIRIN ENTERIC 325 MG TAB As Ordered (06:10)
[2017-12-07 07:24] LABS: HEMATOCRIT 37.4 % (36.0-47.0); HEMOGLOBIN 13.2 g/dl (12.0-16.0); MEAN CORPUSCULAR HEMOGLOBIN 29.9 pg (27.0-33.0); MEAN CORPUSCULAR HGB CONC 35.3 g/dl (32.0-36.5); MEAN CORPUSCULAR VOLUME 84.6 fl (80.0-96.0); PLATELET COUNT, AUTOMATED 337 10^3/uL (150-450); RED BLOOD COUNT 4.42 10^6/uL (4.00-5.40); WHITE BLOOD COUNT 14.1 10^3/uL (4.0-10.0)
[2017-12-07 07:28] LABS: CHOLESTEROL LEVEL 209 MG/DL (<200); HDL CHOLESTEROL 44 MG/DL (>40); LDL CHOLESTEROL 119.4 MG/DL (<100); NON-HDL-C 165 MG/DL; TRIGLYCERIDES LEVEL 228 MG/DL (<150)
[2017-12-07] MEDS: HumaLOG INSULIN (NovoLOG) PER UNIT SC ×4 (07:30→21:00)
[2017-12-07 07:44] LABS: ANION GAP 9 MEQ/L (8-16); BLOOD UREA NITROGEN 10 MG/DL (7-18); CALCIUM LEVEL 8.1 MG/DL (8.5-10.1); CARBON DIOXIDE LEVEL 29 MEQ/L (21-32); CHLORIDE LEVEL 97 MEQ/L (98-107); CREATININE FOR GFR 0.72 MG/DL (0.55-1.30); GLOMERULAR FILTRATION RATE > 60.0 (>51); GLUCOSE, FASTING 116 MG/DL (70-100); POTASSIUM SERUM 3.8 MEQ/L (3.5-5.1); SODIUM LEVEL 135 MEQ/L (136-145)
[2017-12-07] MEDS: MAGNESIUM CHLORIDE 64 MG TABCR (SLO MAG) PO (08:35)
[2017-12-07] MEDS: ONDANSETRON 4MG/2ML VIAL (J2405) IV ×2 (08:35→21:54)
[2017-12-07] MEDS: amLODIPine 5 MG TAB PO (08:36)
[2017-12-07] MEDS: ASPIRIN 81 MG ENTERIC TAB PO (08:36)
[2017-12-07] MEDS: OCUVITE 1 TAB PO (08:36)
[2017-12-07] MEDS: LACTOBACILLUS ACIDOPHILUS CAP (BACID) PO (08:36)
[2017-12-07] MEDS: ASCORBIC ACID 500 MG TAB PO (08:36)
[2017-12-07] MEDS: hydroCHLOROthiazide 25 MG TAB PO (08:36)
[2017-12-07] MEDS: prednisoLONE ACET 1% OPHTH SUSP 5ML OS ×2 (08:37→21:00)
[2017-12-07] MEDS: PARoxetine 20 MG TAB PO (08:37)
[2017-12-07] MEDS: METOPROLOL SUCC (TopROL XL) 100MG *XL* TAB PO (08:37)
[2017-12-07] MEDS: VITAMIN B COMPLEX/VIT C CAP PO (08:37)
[2017-12-07] MEDS: VITAMIN D (CHOLECALCIFEROL) 400 INTERNATIONAL UNITS TAB PO (08:37)
[2017-12-07] MEDS: LEVEMIR (INSULIN DETEMIR) 1 UNITS/0.01ML SC ×2 (08:38→21:46)
[2017-12-07] MEDS: PHENAZOPYRIDINE 100 MG TAB PO ×2 (09:00→21:44)
[2017-12-07 09:07] LABS: APPEARANCE, URINE CLEAR (CLEAR); BACTERIA, URINE AUTO NEGATIVE (NEGATIVE); BILIRUBIN, URINE AUTO NEGATIVE (NEGATIVE); BLOOD, URINE BLOOD 1+ (NEGATIVE); COLOR, URINE YELLOW (YELLOW); GLUCOSE, URINE (UA) AUTO NEGATIVE (NEGATIVE); KETONE, URINE AUTO NEGATIVE (NEGATIVE); LEUKOCYTE ESTERASE, URINE AUTO 1+ (NEGATIVE); NITRITE, URINE AUTO NEGATIVE (NEGATIVE); PROTEIN, URINE AUTO 2+ mg/dL (NEGATIVE); RBC, URINE AUTO 5 /HPF (0-3); SQUAMOUS EPITHELIAL CELL UR AU 1 /HPF (0-6); UROBILINOGEN, URINE AUTO 0.2 mg/dL (0.0-2.0); WBC, URINE AUTO 16 /HPF (0-3)
[2017-12-07 11:56] LABS: BEDSIDE GLUCOSE 210 MG/DL (70-105)
[2017-12-07 17:18] LABS: BEDSIDE GLUCOSE 169 MG/DL (70-105)
[2017-12-07 21:08] LABS: BEDSIDE GLUCOSE 174 MG/DL (70-105)
[2017-12-07] MEDS: clonazePAM 1 MG TAB PO (21:44)
[2017-12-07] MEDS: ACETAMINOPHEN TAB 650MG DOSE (2X325MG) PO (21:46)
[2017-12-08] MEDS: ACETAMINOPHEN TAB 650MG DOSE (2X325MG) PO ×2 (02:20→22:13)
[2017-12-08] MEDS: ONDANSETRON 4MG/2ML VIAL (J2405) IV (02:20)
[2017-12-08 06:42] LABS: HEMATOCRIT 37.8 % (36.0-47.0); HEMOGLOBIN 13.2 g/dl (12.0-16.0); MEAN CORPUSCULAR HEMOGLOBIN 29.3 pg (27.0-33.0); MEAN CORPUSCULAR HGB CONC 34.9 g/dl (32.0-36.5); PLATELET COUNT, AUTOMATED 366 10^3/uL (150-450); RED CELL DISTRIBUTION WIDTH 12.9 % (11.5-14.5); WHITE BLOOD COUNT 13.5 10^3/uL (4.0-10.0)
[2017-12-08] MEDS: LEVOTHYROXINE 50MCG TABLET (0.05MG) PO (06:46)
[2017-12-08 06:58] LABS: ANION GAP 7 MEQ/L (8-16); BLOOD UREA NITROGEN 10 MG/DL (7-18); CALCIUM LEVEL 8.3 MG/DL (8.5-10.1); CARBON DIOXIDE LEVEL 30 MEQ/L (21-32); CHLORIDE LEVEL 97 MEQ/L (98-107); CREATININE FOR GFR 0.75 MG/DL (0.55-1.30); GLOMERULAR FILTRATION RATE > 60.0 (>51); GLUCOSE, FASTING 120 MG/DL (70-100); POTASSIUM SERUM 4.1 MEQ/L (3.5-5.1); SODIUM LEVEL 134 MEQ/L (136-145)
[2017-12-08] MEDS: HumaLOG INSULIN (NovoLOG) PER UNIT SC ×4 (07:30→21:00)
[2017-12-08] MEDS: amLODIPine 5 MG TAB PO (07:58)
[2017-12-08] MEDS: PARoxetine 20 MG TAB PO (09:00)
[2017-12-08] MEDS: PHENAZOPYRIDINE 100 MG TAB PO ×2 (09:00→21:58)
[2017-12-08] MEDS: prednisoLONE ACET 1% OPHTH SUSP 5ML OS ×2 (09:00→21:00)
[2017-12-08] MEDS: VITAMIN D (CHOLECALCIFEROL) 400 INTERNATIONAL UNITS TAB PO (09:00)
[2017-12-08] MEDS: VITAMIN B COMPLEX/VIT C CAP PO (09:00)
[2017-12-08] MEDS: ASCORBIC ACID 500 MG TAB PO (09:00)
[2017-12-08] MEDS: hydroCHLOROthiazide 25 MG TAB PO (09:00)
[2017-12-08] MEDS: LACTOBACILLUS ACIDOPHILUS CAP (BACID) PO (09:00)
[2017-12-08] MEDS: MAGNESIUM CHLORIDE 64 MG TABCR (SLO MAG) PO (09:00)
[2017-12-08] MEDS: ASPIRIN 81 MG ENTERIC TAB PO (09:00)
[2017-12-08] MEDS: OCUVITE 1 TAB PO (09:00)
[2017-12-08] MEDS: METOPROLOL SUCC (TopROL XL) 100MG *XL* TAB PO (09:00)
[2017-12-08] MEDS: LEVEMIR (INSULIN DETEMIR) 1 UNITS/0.01ML SC ×2 (09:00→22:00)
[2017-12-08 12:04] LABS: BEDSIDE GLUCOSE 197 MG/DL (70-105)
[2017-12-08 17:31] LABS: BEDSIDE GLUCOSE 202 MG/DL (70-105)
[2017-12-08] MEDS: clonazePAM 1 MG TAB PO (21:58)
[2017-12-09] MEDS: ONDANSETRON 4MG/2ML VIAL (J2405) IV (00:19)
[2017-12-09] MEDS: ASPIRIN ENTERIC 325 MG TAB PO (02:43)
[2017-12-09] MEDS: LEVOTHYROXINE 50MCG TABLET (0.05MG) PO (06:17)
[2017-12-09 06:28] LABS: HEMATOCRIT 38.1 % (36.0-47.0); HEMOGLOBIN 13.5 g/dl (12.0-16.0); MEAN CORPUSCULAR HEMOGLOBIN 29.7 pg (27.0-33.0); MEAN CORPUSCULAR HGB CONC 35.4 g/dl (32.0-36.5); MEAN CORPUSCULAR VOLUME 83.7 fl (80.0-96.0); PLATELET COUNT, AUTOMATED 348 10^3/uL (150-450); RED BLOOD COUNT 4.55 10^6/uL (4.00-5.40); WHITE BLOOD COUNT 14.2 10^3/uL (4.0-10.0)
[2017-12-09 06:55] LABS: ANION GAP 9 MEQ/L (8-16); BLOOD UREA NITROGEN 9 MG/DL (7-18); CALCIUM LEVEL 8.6 MG/DL (8.5-10.1); CARBON DIOXIDE LEVEL 29 MEQ/L (21-32); CHLORIDE LEVEL 94 MEQ/L (98-107); CREATININE FOR GFR 0.73 MG/DL (0.55-1.30); GLOMERULAR FILTRATION RATE > 60.0 (>51); GLUCOSE, FASTING 163 MG/DL (70-100); POTASSIUM SERUM 3.5 MEQ/L (3.5-5.1); SODIUM LEVEL 132 MEQ/L (136-145)
[2017-12-09 08:47] LABS: BEDSIDE GLUCOSE 160 MG/DL (70-105)
[2017-12-09] MEDS: HumaLOG INSULIN (NovoLOG) PER UNIT SC (08:57)
[2017-12-09] MEDS: PHENAZOPYRIDINE 100 MG TAB PO (08:58)
[2017-12-09] MEDS: LEVEMIR (INSULIN DETEMIR) 1 UNITS/0.01ML SC (08:58)
[2017-12-09] MEDS: OCUVITE 1 TAB PO (08:59)
[2017-12-09] MEDS: METOPROLOL SUCC (TopROL XL) 100MG *XL* TAB PO (08:59)
[2017-12-09] MEDS: ASCORBIC ACID 500 MG TAB PO (08:59)
[2017-12-09] MEDS: PARoxetine 20 MG TAB PO (09:00)
[2017-12-09] MEDS: VITAMIN D (CHOLECALCIFEROL) 400 INTERNATIONAL UNITS TAB PO (09:00)
[2017-12-09] MEDS: ASPIRIN 81 MG ENTERIC TAB PO (09:00)
[2017-12-09] MEDS: hydroCHLOROthiazide 25 MG TAB PO (09:00)
[2017-12-09] MEDS: VITAMIN B COMPLEX/VIT C CAP PO ×2 (09:00)
[2017-12-09] MEDS: LACTOBACILLUS ACIDOPHILUS CAP (BACID) PO (09:00)
[2017-12-09] MEDS: prednisoLONE ACET 1% OPHTH SUSP 5ML OS (09:00)
[2017-12-09] MEDS: MAGNESIUM CHLORIDE 64 MG TABCR (SLO MAG) PO (09:00)
[2017-12-09] MEDS: amLODIPine 10 MG TAB PO (09:01)
[2017-12-12 00:06] LABS: METANEPHRINE PLASMA 18 pg/mL (0-62); NORMETANEPHRINE PLASMA 90 pg/mL (0-145)
== END 2017-12-09 10:45 | disposition home or self-care (01) | DRG 199 ==
LOC: M ED 19:37 → M ED INP 12-06 01:40 → M ICU 12-06 07:50 → M MSPAV 12-06 15:30
DX: I16.0 Hypertensive urgency (principal); F32.9 Major depressive disorder, single episode, unspecified; E11.9 Type 2 diabetes mellitus without complications; E03.9 Hypothyroidism, unspecified; D72.829 Elevated white blood cell count, unspecified; I10 Essential (primary) hypertension; E78.5 Hyperlipidemia, unspecified; K58.9 Irritable bowel syndrome, unspecified; E66.9 Obesity, unspecified; F41.9 Anxiety disorder, unspecified; Z79.4 Long term (current) use of insulin; Z79.899 Other long term (current) drug therapy; Z88.0 Allergy status to penicillin; Z88.1 Allergy status to other antibiotic agents; Z68.36 Body mass index [BMI] 36.0-36.9, adult

== ENCOUNTER → 2018-02-10 | Outpatient (CLI) | payer OTHER | LOC: M RAD 14:42 | DX: E04.1 Nontoxic single thyroid nodule (principal) ==

== ENCOUNTER → 2018-02-10 | Outpatient (CLI) | payer OTHER | LOC: M RAD 14:39 | DX: H35.82 Retinal ischemia (principal) ==

== ENCOUNTER → 2018-04-18 | Outpatient (CLI) | payer OTHER ==
[~2018-04-18] MED LIST changes: -ACETAMINOPHEN 325 MG TAB PO PRN; -ALBU17IN INH; -BSS with VANC/TOB/EPI for EYE CASES IR ONE; -CALC600T31 PO; -CITR500T PO; -CLON1TAB PO; -CO Q100C10 PO; -CYCLOPENTOLATE 2% OPHTH SOLN 2ML BTL OS ONE; -DICY1CAP8 PO; -HUMA75VL SC; +LIDOCAINE 1% MDV 20ML VIAL As Ordered; -LIDOCAINE 3.5 % 1ML OPHTH TOPICAL GEL OU ONE; -LOSA100T5 PO; -LUTECAP2 PO; -MAGN500C PO; -MELA10CA PO; -METF10004 PO; -METO1TAB33 PO; -MIDAZOLAM INJ 2 MG/2 ML VIAL (J2250) As Ordered ONE; -OFLOXACIN 0.3 % (OCUFLOX) OPTH SOL 5ML OS ONE; -OMEG1CAP16 PO; -PARO20TA4 PO; -PHENYLEPHRINE 2.5% OPHTH SOL 2ML OS ONE; -PHENYLEPHRINE HCL 10 % OPHTH. SOL 5ML OS PRN; -PROBCAP4 PO; -PROPARACAINE 0.5% OPHTH SOL 15ML OS PRN; -SUPETAB25 PO; -SYNT50TA PO; -TROPICAMIDE 1% OPHTH SOLN 2ML OS ONE; -VITA100054 PO; -VITA100067 PO; -VITA500T PO; -fentaNYL 100 MCG/2 ML INJECTION (J3010) As Ordered ONE
== END ==
LOC: M RADPRO 11:08
DX: E04.2 Nontoxic multinodular goiter (principal); Z79.82 Long term (current) use of aspirin; Z79.4 Long term (current) use of insulin; Z79.899 Other long term (current) drug therapy; Z88.0 Allergy status to penicillin; Z88.1 Allergy status to other antibiotic agents
CPT/HCPCS: 10022

== ENCOUNTER → 2018-04-24 | Outpatient (CLI) | payer OTHER ==
[~2018-04-24] MED LIST changes: +E-Z-GAS II EFFERVESCENT PACKET (SODIUM BICARB./CITRIC ACID/SIMETHICONE) As Ordered; +E-Z-HD 98% w/w 340GM SUSP BTL As Ordered; +E-Z-PAQUE 96% w/w SUSP 176GM BTL As Ordered; -LIDOCAINE 1% MDV 20ML VIAL As Ordered
== END ==
LOC: M RAD 08:27
DX: K44.9 Diaphragmatic hernia without obstruction or gangrene (principal); R13.10 Dysphagia, unspecified
CPT/HCPCS: 74220

== ENCOUNTER → 2018-06-04 | Outpatient (CLI) | payer OTHER | LOC: M ST 14:51 | DX: R13.10 Dysphagia, unspecified (principal) ==

== ENCOUNTER → 2018-06-26 | Outpatient (REF) | payer OTHER ==
[2018-06-26 19:17] LABS: TOTAL 25(OH) VITAMIN D 71.1 NG/ML (30.0-100.0)
[2018-06-26 19:20] LABS: ESTIMATED AVERAGE GLUCOSE 174 MG/DL (60-110); HEMOGLOBIN A1c 7.7 %
[2018-06-26 19:23] LABS: ALBUMIN 3.7 GM/DL (3.2-5.2); ALBUMIN/GLOBULIN RATIO 1.37 (1.00-1.93); ALKALINE PHOSPHATASE 72 U/L (45-117); ALT/SGPT 30 U/L (12-78); ANION GAP 10 MEQ/L (8-16); AST/SGOT 24 U/L (7-37); BILIRUBIN,TOTAL 0.4 MG/DL (0.2-1.0); BLOOD UREA NITROGEN 12 MG/DL (7-18); CALCIUM LEVEL 9.2 MG/DL (8.5-10.1); CARBON DIOXIDE LEVEL 29 MEQ/L (21-32); CHLORIDE LEVEL 106 MEQ/L (98-107); CREATININE FOR GFR 1.04 MG/DL (0.55-1.30); GLOMERULAR FILTRATION RATE 58.1 (>51); GLUCOSE, FASTING 75 MG/DL (70-100); POTASSIUM SERUM 3.6 MEQ/L (3.5-5.1); SODIUM LEVEL 145 MEQ/L (136-145); TOTAL PROTEIN 6.4 GM/DL (6.4-8.2)
[2018-06-26 19:31] LABS: FREE T4 1.18 NG/DL (0.76-1.46)
[2018-06-26 20:09] LABS: BASO # 0.1 10^3/uL (0.0-0.2); BASO % 0.7 % (0.0-1.0); EOS # 0.4 10^3/uL (0.0-0.50); EOS % 2.7 % (0.0-3.0); HEMOGLOBIN 13.1 g/dl (12.0-15.5); IMMATURE GRANULOCYTE % 0.6 % (0-3.0); LYMPH # 3.6 10^3/uL (1.5-4.5); LYMPH % 24.3 % (24.0-44.0); MEAN CORPUSCULAR HEMOGLOBIN 29.6 pg (27.0-33.0); MEAN CORPUSCULAR HGB CONC 33.6 g/dl (32.0-36.5); MONO % 6.7 % (0.0-5.0); NEUTROPHILS # 9.7 10^3/uL (1.8-7.7); PLATELET COUNT, AUTOMATED 350 10^3/uL (150-450); RED BLOOD COUNT 4.43 10^6/uL (4.00-5.40); RED CELL DISTRIBUTION WIDTH 13.6 % (11.5-14.5); WHITE BLOOD COUNT 14.9 10^3/uL (4.0-10.0)
== END ==
LOC: M SFHCADAM 14:55
DX: D72.829 Elevated white blood cell count, unspecified (principal); E11.9 Type 2 diabetes mellitus without complications

== ENCOUNTER → 2018-08-21 | Outpatient (CLI) | payer OTHER | LOC: M RAD 17:21 | DX: E04.2 Nontoxic multinodular goiter (principal) | CPT/HCPCS: 76536 ==

== ENCOUNTER → 2018-09-24 | Outpatient (CLI) | payer OTHER | LOC: M RAD 16:05 | DX: H70.93 Unspecified mastoiditis, bilateral (principal) | CPT/HCPCS: 70480 ==

== ENCOUNTER 2018-10-09 08:46 | Day surgery (SDC) | payer OTHER ==
[~2018-10-09] VITALS: Ht 167.6 cm; Wt 103.0 kg
[~2018-10-09 08:46] MED LIST changes: +ACYC5OIN EXT; +ALBU17IN INH; +AMLO10TA PO; +ARTI99.0 OU; +ASPI325T25 PO; +BACITAB PO; +CALC600T31 PO; +CIPR-249 PO; +CIPR500T3 PO; +CITR500T PO; +CLON-412 PO; +CLON1TAB8 PO; +CO Q100C10 PO; +D400400C PO; +DICY1CAP8 PO; -E-Z-GAS II EFFERVESCENT PACKET (SODIUM BICARB./CITRIC ACID/SIMETHICONE) As Ordered; -E-Z-HD 98% w/w 340GM SUSP BTL As Ordered; -E-Z-PAQUE 96% w/w SUSP 176GM BTL As Ordered; +HUMA75VL SC; +HUMA75VLDS SC; +HYDR25TAB PO; +KRIL1CAP6 PO; +LOSA100T5 PO; +LUTECAP2 PO; +MAGN500C PO; +MAGN64TASA PO; +MELA10CA PO; +MELA3CAP2 PO; +METF10004 PO; +METO1TAB33 PO; +OCUVTAB PO; +OMEG1CAP16 PO; +PARO20TA4 PO; +PRED1SUS2 OS; +PROBCAP4 PO; +SUPETAB25 PO; +SYNT50TA PO; +VITA100054 PO; +VITA100067 PO; +VITA50005 PO; +VITA500T PO; +VITATAB11 PO
[2018-10-09] MEDS ORDERED: CIPRODEX OTIC SUSP 7.5ML As Ordered ONE (10:27)
[2018-10-09] MEDS ORDERED: dexameTHASONE 4 MG/ML 1ML VIAL (J1100) As Ordered ONE (10:29)
[2018-10-09] MEDS ORDERED: LIDOCAINE 2% INJ 100 MG/5 ML SDV (FOR ANES.) As Ordered ONE (10:29)
[2018-10-09] MEDS ORDERED: ONDANSETRON 4MG/2ML VIAL (J2405) As Ordered ONE ×2 (10:29→11:29)
[2018-10-09] MEDS ORDERED: PROPOFOL 200 MG/20 ML VIAL As Ordered ONE (10:29)
[2018-10-09] MEDS ORDERED: fentaNYL 100 MCG/2 ML INJECTION (J3010) As Ordered ONE (10:30)
[2018-10-09] MEDS ORDERED: MIDAZOLAM INJ 2 MG/2 ML VIAL (J2250) As Ordered ONE (10:30)
[2018-10-09] MEDS ORDERED: PERCOCET 5MG/325MG TAB As Ordered ONE (11:29)
[2018-10-09] MEDS ORDERED: LR 1,000 ML IV SCH ×2 (11:30→11:45)
[2018-10-09] MEDS ORDERED: ONDANSETRON 4MG/2ML VIAL (J2405) IV PRN (11:30)
[2018-10-09] MEDS: PERCOCET 5MG/325MG TAB PO PRN ×2 (11:34→12:01)
[2018-10-09] MEDS: HYDROMORPHONE HCL 0.5 MG/ 0.5 ML SYRINGE (J1170 PER 1) IV PRN ×2 (11:35→11:40)
[2018-10-09] MEDS: fentaNYL 100 MCG/2 ML INJECTION (J3010) IV PRN ×4 (11:49→12:21)
[2018-10-09 12:50] VITALS: BP 202/89
--- NOTE | 2018-10-28 07:51 | RO ---
DATE OF PROCEDURE: 10/09/2018 PREPROCEDURE DIAGNOSIS: Bilateral otalgia and left mastoiditis. POSTPROCEDURE DIAGNOSIS: Bilateral otalgia and left mastoiditis. Bilateral acute otitis media and right otitis externa. PROCEDURE: debridement and placement of ear wick to the right external auditory canal, and bilateral tympanostomy. SURGEON: Dr. Rajiv Child. ELEVATOR STARTER: ANESTHESIA: General. CLINICAL PREAMBLE: This is a 58-year-old woman who presented to the office yesterday complaining of bilateral otalgia worse in the left ear. She has been treated with oral antibiotics including clindamycin and Levaquin with no resolution of symptoms. CT scan of the temporal bone shows evidence of left mastoiditis. In addition, she complains of new onset of hearing difficulty. Physical examination revealed edematous right ear canal with possible fluid in the right ear. Management options including bilateral tympanostomy have been discussed. Patient understood and consented to the procedure. DESCRIPTION OF PROCEDURE: Patient was identified in pre-holding and brought to the operating room in stable condition. In the supine position, on the operating room table, the patient received general anesthesia followed by oral tracheal intubation without incident. The patient was prepped and draped in the usual fashion for the procedure. The patient's head was then turned to the left side to expose the right ear. An ear speculum was inserted and the right ear canal was visualized and found to be edematous with skin debris. Debridement of the right external auditory canal was then conducted under binocular magnification. At this time, the right tympanic membrane was clearly visualized and found to be intact. Fluid was noted in the right middle ear. A myringotomy incision was made over anterior/inferior quadrant of the right tympanic membrane. The right middle ear cleft was then suction clear of the serous fluid. A 7 mm straight shank tympanostomy tube was then inserted. At this time an ear wick was placed into the right external auditory canal. Ciprodex drops were instilled and a cotton ball was then used to occlude the ear canal. The left ear was then examined under binocular magnifications. There was no evidence of otitis externa for the left ear. The left tympanic membranes was intact with evidence of serous fluid. Myringotomy incision was made over the anterior/inferior quadrant of the tympanic membrane. Ciprodex fluid was suctioned clear from the left middle ear cleft. A 7 mm straight shank tympanostomy tube was inserted. Ciprodex drops were instilled and cotton ball was used to occlude the left ear canal. At the end of procedure, sponge and instruments counts were correct. There were no complications. Estimated blood loss was less than 1 ml. Anesthesia was reversed and patient was extubated and brought to the recovery room in stable condition. FERNANDA
== END 2018-10-09 13:05 | disposition home or self-care (01) ==
LOC: M SDC 08:46
PROVIDERS: ATTEND Otolaryngology
DX: H92.03 Otalgia, bilateral (principal); H70.002 Acute mastoiditis without complications, left ear; H60.91 Unspecified otitis externa, right ear; I10 Essential (primary) hypertension; E78.5 Hyperlipidemia, unspecified; J45.909 Unspecified asthma, uncomplicated; E11.9 Type 2 diabetes mellitus without complications; E03.9 Hypothyroidism, unspecified; Z86.718 Personal history of other venous thrombosis and embolism; Z88.0 Allergy status to penicillin; E66.9 Obesity, unspecified; Z98.41 Cataract extraction status, right eye; Z98.42 Cataract extraction status, left eye; Z96.1 Presence of intraocular lens; F41.9 Anxiety disorder, unspecified; F32.9 Major depressive disorder, single episode, unspecified
CPT/HCPCS: 69436; J1100; J1170; J2250; J2405; J3010

== ENCOUNTER → 2018-11-21 | Outpatient (REF) | payer OTHER | LOC: M LAB REF 14:15 | PROVIDERS: ATTEND Physician Assistant Medical | DX: H92.11 Otorrhea, right ear (principal) ==

== ENCOUNTER → 2018-12-24 | Outpatient (REF) | payer OTHER ==
[2018-12-24 20:26] LABS: BASO # 0.1 10^3/uL (0.0-0.2); BASO % 0.6 % (0.0-1.0); EOS # 0.4 10^3/uL (0.0-0.50); EOS % 3.3 % (0.0-3.0); HEMATOCRIT 38.1 % (36.0-47.0); HEMOGLOBIN 12.6 g/dl (12.0-15.5); MEAN CORPUSCULAR HEMOGLOBIN 28.2 pg (27.0-33.0); MEAN CORPUSCULAR HGB CONC 33.1 g/dl (32.0-36.5); MEAN CORPUSCULAR VOLUME 85.2 fl (80.0-96.0); MONO # 0.7 10^3/uL (0.0-0.8); MONO % 6.5 % (0.0-5.0); NEUTROPHILS # 6.6 10^3/uL (1.8-7.7); NEUTROPHILS % 61.2 % (36.0-66.0); PLATELET COUNT, AUTOMATED 322 10^3/uL (150-450); RED BLOOD COUNT 4.47 10^6/uL (4.00-5.40); WHITE BLOOD COUNT 10.7 10^3/uL (4.0-10.0)
[2018-12-24 20:44] LABS: HEMOGLOBIN A1c 7.7 %
[2018-12-24 21:03] LABS: ALBUMIN 2.9 GM/DL (3.2-5.2); BILIRUBIN,TOTAL 0.3 MG/DL (0.2-1.0); CALCIUM LEVEL 7.9 MG/DL (8.5-10.1); CHOLESTEROL RISK RATIO 6.333 (<5); CREATININE FOR GFR 1.1 MG/DL (0.55-1.30); FREE T4 1.13 NG/DL (0.76-1.46); GLOMERULAR FILTRATION RATE 54.3 (>51); POTASSIUM SERUM 3.9 MEQ/L (3.5-5.1); THYROID STIMULATING HORMONE 4.14 uIU/ML (0.358-3.740); TOTAL 25(OH) VITAMIN D 38.5 NG/ML (30.0-100.0); TOTAL PROTEIN 5.3 GM/DL (6.4-8.2)
[2018-12-24 21:12] LABS: CREATININE, URINE 52.5 MG/DL; MAU/CREAT RATIO 4571.4 MCG/MG (0.0-30.0)
== END ==
LOC: M SFHCADAM 14:10
PROVIDERS: ATTEND Family Medicine
DX: D72.829 Elevated white blood cell count, unspecified (principal); E11.9 Type 2 diabetes mellitus without complications; E03.9 Hypothyroidism, unspecified; E55.9 Vitamin D deficiency, unspecified; I11.9 Hypertensive heart disease without heart failure; E78.5 Hyperlipidemia, unspecified

== ENCOUNTER → 2019-01-22 | Outpatient (REF) | payer OTHER ==
[~2019-01-22] MED LIST changes: +ASPI-255 PO; -ASPI325T25 PO
[2019-01-22 19:50] LABS: CALCIUM LEVEL 8.5 MG/DL (8.5-10.1); CREATININE FOR GFR 1.13 MG/DL (0.55-1.30); GLOMERULAR FILTRATION RATE 52.6 (>51); POTASSIUM SERUM 3.9 MEQ/L (3.5-5.1)
== END ==
LOC: M SFHCADAM 13:24
PROVIDERS: ATTEND Family Medicine
DX: I11.9 Hypertensive heart disease without heart failure (principal); R80.9 Proteinuria, unspecified

== ENCOUNTER → 2019-01-24 | Outpatient (REF) | payer OTHER ==
[2019-01-25 10:41] LABS: TOTAL PROTEIN 24 HOUR URINE 5808.7 MG/24HR (50-150)
[2019-01-25 10:50] LABS: URINE TOTAL PROTEIN 400.6 MG/DL (0-12)
== END ==
LOC: M LAB REF 11:30
PROVIDERS: ATTEND Family Medicine
DX: I11.9 Hypertensive heart disease without heart failure (principal); R80.9 Proteinuria, unspecified

== ENCOUNTER → 2019-02-16 | Outpatient (CLI) | payer OTHER ==
[2019-02-16 16:36] LABS: CALCIUM LEVEL 7.9 MG/DL (8.5-10.1); CREATININE FOR GFR 1.35 MG/DL (0.55-1.30); FREE T4 1.19 NG/DL (0.76-1.46); GLOMERULAR FILTRATION RATE 42.9 (>51); MAGNESIUM LEVEL 2.1 MG/DL (1.8-2.4); POTASSIUM SERUM 4.4 MEQ/L (3.5-5.1); THYROID STIMULATING HORMONE 2.49 uIU/ML (0.358-3.740)
== END ==
LOC: M LAB 15:27
PROVIDERS: ATTEND Family Medicine
DX: E83.42 Hypomagnesemia (principal); I11.9 Hypertensive heart disease without heart failure; E03.9 Hypothyroidism, unspecified

== ENCOUNTER → 2019-03-06 | Outpatient (REF) | payer OTHER ==
[2019-03-06 14:35] LABS: HEPATITIS B SURFACE ANTIBODY NEGATIVE (POSITIVE); HEPATITIS B SURFACE ANTIGEN NEGATIVE (NEGATIVE); TOTAL PROTEIN 5.6 GM/DL (6.4-8.2)
[2019-03-06 14:52] LABS: HEPATITIS C VIRUS ABY INDEX < 0.0 INDEX (<0.8)
[2019-03-06 14:53] LABS: HEPATITIS B CORE ANTIBODY IGM NEGATIVE (NEGATIVE)
[2019-03-06 15:07] LABS: URINE TOTAL PROTEIN 354.2 MG/DL (0-12)
[2019-03-06 17:28] LABS: COMPLEMENT C3 123 MG/DL (90-180); COMPLEMENT C4 19 MG/DL (10-40)
[2019-03-10 13:02] LABS: ALBUMIN 3.38 GM/DL (3.29-5.55); ALBUMIN % 60.4 % (55.8-66.1); ALPHA-1-GLOBULINS 0.28 GM/DL (0.17-0.41); ALPHA-2-GLOBULINS 0.78 GM/DL (0.42-0.99); ALPHA-2-GLOBULINS % 13.9 % (7.1-11.8); BETA-1-GLOBULINS 0.38 GM/DL (0.28-0.60); BETA-1-GLOBULINS % 6.7 % (4.7-7.2); BETA-2-GLOBULINS 0.29 GM/DL (0.19-0.55); BETA-2-GLOBULINS % 5.1 % (3.2-6.5); GAMMA GLOBULIN % 8.9 % (11.1-18.8)
[2019-03-11 14:11] LABS: ANCA-ATYPICAL <1:20 titer (Neg:<1:20); ANTI DS-DNA AB <1:10 titer (.); ANTI-GLOMERULAR BASEMENT MEMB 3 units (0-20); ANTINUCLEAR ANTIBODIES DIRECT Negative (Negative); CYTOPLASMIC NEUTROP AB ANCA-C <1:20 titer (Neg:<1:20); FREE KAPPA LIGHT CHAINS SERUM 25.4 mg/L (3.3-19.4); FREE LAMBDA LIGHT CHAINS SERUM 18.9 mg/L (5.7-26.3); KAPPA/LAMBDA RATIO SERUM 1.34 (0.26-1.65); PERINUCLEAR AB ANCA-P <1:20 titer (Neg:<1:20)
[2019-03-12 13:26] LABS: UPEP INTERPRETATION NO M-SPIKE NOTED; URINE VOLUME RANDOM ML
== END ==
LOC: M LAB REF 13:23
PROVIDERS: ATTEND Internal Medicine Nephrology
DX: E11.22 Type 2 diabetes mellitus with diabetic chronic kidney disease (principal); N18.3 Chronic kidney disease, stage 3 (moderate); R80.9 Proteinuria, unspecified

== ENCOUNTER → 2019-03-12 | Outpatient (CLI) | payer OTHER ==
--- NOTE | 2019-03-12 12:00 | REP ---
Clinical: Chronic renal disease and proteinuria. Technique: Real time avendano scale ultrasound examination using curved array transducer. Comparison: 12/07/2017 Findings: The kidneys are normal in contour, size, and parenchymal echogenicity. Subtle increased central sinus fat consistent with chronic renal disease. No hydronephrosis, nephrolithiasis, cystic or renal mass lesion appreciated. Right kidney measures 11.5 x 5.6 x 5.0 cm. Left kidney measures 12.1 x 5.7 x 6.5 cm. Bladder is under distended but grossly normal by appearance. Impression: Chronic renal disease. No hydronephrosis. Electronically Signed by Steve Garcia MD 03/12/2019 11:52 A
== END ==
LOC: M RAD 10:42
PROVIDERS: ATTEND Internal Medicine Nephrology
DX: N18.3 Chronic kidney disease, stage 3 (moderate) (principal); R80.9 Proteinuria, unspecified; I12.9 Hypertensive chronic kidney disease with stage 1 through stage 4 chronic kidney disease, or unspecified chronic kidney disease

== ENCOUNTER → 2019-03-24 | Outpatient (REF) | payer OTHER ==
[2019-03-24 20:41] LABS: CREATININE, URINE 55.7 MG/DL; URINE TOTAL PROTEIN 176.8 MG/DL (0-12)
[2019-03-24 21:03] LABS: CREATININE 24 HOUR, URINE 1002.6 MG/24HR (600-1800); TOTAL PROTEIN 24 HOUR URINE 3182.4 MG/24HR (50-150)
== END ==
LOC: M LAB REF 16:58
PROVIDERS: ATTEND Internal Medicine Nephrology
DX: R80.9 Proteinuria, unspecified (principal)

== ENCOUNTER → 2019-04-02 | Outpatient (REF) | payer OTHER | LOC: M LAB REF 15:53 | PROVIDERS: ATTEND Physician Assistant Medical | DX: H60.8X3 Other otitis externa, bilateral (principal) ==

== ENCOUNTER → 2019-06-04 | Outpatient (REF) | payer OTHER ==
[~2019-06-04] MED LIST changes: -ARTI99.0 OU; +ARTIDRO2 OU
== END ==
LOC: M LAB REF 15:24
PROVIDERS: ATTEND Physician Assistant Medical
DX: H60.8X3 Other otitis externa, bilateral (principal)

== ENCOUNTER → 2019-06-16 | Outpatient (REF) | payer OTHER ==
[2019-06-16 16:38] LABS: URINE TOTAL PROTEIN 111.9 MG/DL (0-12)
[2019-06-16 16:42] LABS: TOTAL PROTEIN 24 HOUR URINE 2573.7 MG/24HR (50-150)
== END ==
LOC: M LAB REF 15:32
PROVIDERS: ATTEND Internal Medicine Nephrology
DX: R80.9 Proteinuria, unspecified (principal)

== ENCOUNTER → 2019-07-23 | Outpatient (REF) | payer OTHER ==
[2019-07-23 19:50] LABS: HEMATOCRIT 34.4 % (36.0-47.0); HEMOGLOBIN 11.5 g/dl (12.0-15.5); MEAN CORPUSCULAR HEMOGLOBIN 30.3 pg (27.0-33.0); MEAN CORPUSCULAR HGB CONC 33.4 g/dl (32.0-36.5); MEAN CORPUSCULAR VOLUME 90.5 fl (80.0-96.0); PLATELET COUNT, AUTOMATED 339 10^3/uL (150-450); WHITE BLOOD COUNT 9.7 10^3/uL (4.0-10.0)
[2019-07-23 20:04] LABS: ALBUMIN 3.2 GM/DL (3.2-5.2); BILIRUBIN,TOTAL 0.6 MG/DL (0.2-1.0); CALCIUM LEVEL 8.6 MG/DL (8.5-10.1); CREATININE FOR GFR 1.35 MG/DL (0.55-1.30); GLOMERULAR FILTRATION RATE 42.9 (>51); POTASSIUM SERUM 4.8 MEQ/L (3.5-5.1); TOTAL PROTEIN 5.8 GM/DL (6.4-8.2)
[2019-07-23 20:07] LABS: HEMOGLOBIN A1c 8.8 %
== END ==
LOC: M SFHCADAM 16:14
PROVIDERS: ATTEND Family Medicine
DX: N04.9 Nephrotic syndrome with unspecified morphologic changes (principal); N18.3 Chronic kidney disease, stage 3 (moderate); E11.9 Type 2 diabetes mellitus without complications

== ENCOUNTER → 2019-08-10 | Outpatient (REF) | payer OTHER | LOC: M LAB REF 16:53 | PROVIDERS: ATTEND Otolaryngology | DX: Z96.22 Myringotomy tube(s) status (principal) ==

== ENCOUNTER → 2019-09-11 | Outpatient (REF) | payer OTHER ==
[2019-09-14 14:22] LABS: CREATININE,RANDOM URINE 55.7 MG/DL; TOTAL PROTEIN,RANDOM URINE 102.9 MG/DL (0.0-12.0)
== END ==
LOC: M LAB REF 12:58
PROVIDERS: ATTEND Internal Medicine Nephrology
DX: R80.9 Proteinuria, unspecified (principal)

== ENCOUNTER → 2019-11-20 | Outpatient (REF) | payer OTHER ==
[2019-11-20 18:09] LABS: ALBUMIN 3.4 GM/DL (3.2-5.2); ALT/SGPT 20 U/L (12-78); BILIRUBIN,TOTAL 0.3 MG/DL (0.2-1.0); BLOOD UREA NITROGEN 28 MG/DL (7-18); CALCIUM LEVEL 8.5 MG/DL (8.5-10.1); CARBON DIOXIDE LEVEL 30 MEQ/L (21-32); CHLORIDE LEVEL 104 MEQ/L (98-107); CHOLESTEROL LEVEL 243 MG/DL (<200); CREATININE FOR GFR 1.44 MG/DL (0.55-1.30); GLOMERULAR FILTRATION RATE 39.7 (>51); GLUCOSE, FASTING 168 MG/DL (70-100); HDL CHOLESTEROL 36 MG/DL (>40); NON-HDL-C 207 MG/DL; POTASSIUM SERUM 4.7 MEQ/L (3.5-5.1); SODIUM LEVEL 139 MEQ/L (136-145); TOTAL PROTEIN 6.1 GM/DL (6.4-8.2); TRIGLYCERIDES LEVEL 408 MG/DL (<150)
[2019-11-20 18:11] LABS: HEMATOCRIT 36.3 % (36.0-47.0); HEMOGLOBIN 11.6 g/dl (12.0-15.5); MEAN CORPUSCULAR HEMOGLOBIN 29.1 pg (27.0-33.0); PLATELET COUNT, AUTOMATED 382 10^3/uL (150-450); RED BLOOD COUNT 3.99 10^6/uL (4.00-5.40); WHITE BLOOD COUNT 11.5 10^3/uL (4.0-10.0)
== END ==
LOC: M SFHCADAM 11:28
PROVIDERS: ATTEND Family Medicine
DX: N18.3 Chronic kidney disease, stage 3 (moderate) (principal); E11.9 Type 2 diabetes mellitus without complications; N04.9 Nephrotic syndrome with unspecified morphologic changes; E78.5 Hyperlipidemia, unspecified

== ENCOUNTER → 2020-03-10 | Outpatient (REF) | payer OTHER ==
[~2020-03-10] MED LIST changes: -ARTIDRO2 OU; +POLYOPD OU; +VITA-243 PO; -VITA500T PO
[2020-03-10 17:58] LABS: ALBUMIN 3.3 GM/DL (3.2-5.2); ALT/SGPT 28 U/L (12-78); BILIRUBIN,TOTAL 0.2 MG/DL (0.2-1.0); BLOOD UREA NITROGEN 25 MG/DL (7-18); CALCIUM LEVEL 8.9 MG/DL (8.5-10.1); CARBON DIOXIDE LEVEL 28 MEQ/L (21-32); CHLORIDE LEVEL 104 MEQ/L (98-107); CHOLESTEROL LEVEL 257 MG/DL (<200); CREATININE FOR GFR 1.48 MG/DL (0.55-1.30); FREE T4 1.34 NG/DL (0.76-1.46); GLOMERULAR FILTRATION RATE 38.4 (>51); GLUCOSE, FASTING 212 MG/DL (70-100); HDL CHOLESTEROL 31 MG/DL (>40); NON-HDL-C 226 MG/DL; POTASSIUM SERUM 4.8 MEQ/L (3.5-5.1); SODIUM LEVEL 140 MEQ/L (136-145); TOTAL PROTEIN 5.8 GM/DL (6.4-8.2); TRIGLYCERIDES LEVEL 591 MG/DL (<150)
[2020-03-10 18:36] LABS: APPEARANCE, URINE CLEAR (CLEAR); BACTERIA, URINE AUTO NEGATIVE (NEGATIVE); BILIRUBIN, URINE AUTO NEGATIVE (NEGATIVE); BLOOD, URINE BLOOD NEGATIVE (NEGATIVE); COLOR, URINE YELLOW (YELLOW); GLUCOSE, URINE (UA) AUTO 1+ mg/dL (NEGATIVE); KETONE, URINE AUTO NEGATIVE (NEGATIVE); LEUKOCYTE ESTERASE, URINE AUTO 1+ (NEGATIVE); NITRITE, URINE AUTO NEGATIVE (NEGATIVE); PROTEIN, URINE AUTO 2+ mg/dL (NEGATIVE); RBC, URINE AUTO 2 /HPF (0-3); SPECIFIC GRAVITY URINE AUTO 1.011 (1.002-1.035); SQUAMOUS EPITHELIAL CELL UR AU 1 /HPF (0-6); UROBILINOGEN, URINE AUTO 0.2 mg/dL (0.0-2.0); WBC, URINE AUTO 9 /HPF (0-3)
[2020-03-10 19:38] LABS: HEMOGLOBIN A1c 10.1 %
== END ==
LOC: M SFHCADAM 13:49
PROVIDERS: ATTEND Physician Assistant Medical
DX: E03.9 Hypothyroidism, unspecified (principal); E11.9 Type 2 diabetes mellitus without complications; E78.5 Hyperlipidemia, unspecified; K76.0 Fatty (change of) liver, not elsewhere classified

== ENCOUNTER → 2020-03-30 | Outpatient (REF) | payer OTHER ==
[2020-03-30 15:02] LABS: APPEARANCE, URINE HAZY (CLEAR); BACTERIA, URINE AUTO NEGATIVE (NEGATIVE); BILIRUBIN, URINE AUTO NEGATIVE (NEGATIVE); BLOOD, URINE BLOOD NEGATIVE (NEGATIVE); COLOR, URINE YELLOW (YELLOW); GLUCOSE, URINE (UA) AUTO 3+ mg/dL (NEGATIVE); KETONE, URINE AUTO NEGATIVE (NEGATIVE); LEUKOCYTE ESTERASE, URINE AUTO 1+ (NEGATIVE); MUCUS, URINE SMALL (NEGATIVE); NITRITE, URINE AUTO NEGATIVE (NEGATIVE); PROTEIN, URINE AUTO 2+ mg/dL (NEGATIVE); RBC, URINE AUTO 1 /HPF (0-3); SPECIFIC GRAVITY URINE AUTO 1.013 (1.002-1.035); SQUAMOUS EPITHELIAL CELL UR AU 0 /HPF (0-6); UROBILINOGEN, URINE AUTO 0.2 mg/dL (0.0-2.0); WBC, URINE AUTO 21 /HPF (0-3)
== END ==
LOC: M SMT 13:47
PROVIDERS: ATTEND Nurse Practitioner Women's Health
DX: R31.29 Other microscopic hematuria (principal)

== ENCOUNTER → 2020-06-14 | Outpatient (CLI) | payer OTHER ==
--- NOTE | 2020-06-16 07:47 | REPMRS ---
Patient History The patient states she had a clinical breast exam in May 2020. Family history of breast cancer at age 58 in paternal grandmother. Digital Woman Screen Mammo: June 14, 2020 - Exam #: [id number] Bilateral CC and MLO view(s) were taken. Technologist: Rosa Ramirez, Technologist Prior study comparison: July 17, 2017, digital woman screen mammo performed at [facility]. 2013, digital bilateral screening mammo, performed at [facility]. October 12, 2010, digital bilateral screening mammo, performed at [facility]. FINDINGS: There are scattered fibroglandular densities. The Volpara volumetric breast density category is:B. There has been no change in the appearance of the mammogram from the prior studies. There is a mild amount of scattered fibroglandular density which is fairly symmetric. There is no interval development of dominant mass, architectural distortion, or grouped microcalcification suggestive of malignancy. 3-D tomosynthesis shows no additional findings. Assessment: BI-RADS/ACR category 1 mammogram. Negative Mammogram. Recommendation Routine screening mammogram of both breasts in 1 year (for women over age 40). This patient's Lifetime Breast Cancer Risk is estimated at 10.3 %. This mammogram was interpreted with the aid of an FDA-approved computer-aided dectection system. Electronically Signed By: Sukh Ann MD 06/16/20 0747
== END ==
LOC: M WHC 14:11
PROVIDERS: ATTEND Nurse Practitioner Women's Health
DX: Z12.31 Encounter for screening mammogram for malignant neoplasm of breast (principal)

== ENCOUNTER → 2020-06-17 | Outpatient (CLI) | payer OTHER ==
[2020-06-17 16:40] LABS: CALCIUM LEVEL 9.2 MG/DL (8.5-10.1); CREATININE FOR GFR 1.58 MG/DL (0.55-1.30); GLOMERULAR FILTRATION RATE 35.6 (>51); POTASSIUM SERUM 5.3 MEQ/L (3.5-5.1)
[2020-06-17 19:01] LABS: HEMOGLOBIN A1c 9.6 %
== END ==
LOC: M LAB 15:42
PROVIDERS: ATTEND Family Medicine
DX: E11.9 Type 2 diabetes mellitus without complications (principal)

== ENCOUNTER → 2020-06-17 | Outpatient (CLI) | payer OTHER ==
--- NOTE | 2020-07-19 07:23 | REP ---
PELVIC ULTRASOUND CLINICAL: Pelvic pain. TECHNIQUE: Transabdominal pelvic ultrasound followed by transvaginal examination for better evaluation of the endometrium and adnexa. FINDINGS: Evidence for prior hysterectomy. No pelvic fluid or adnexal mass lesion identified. Ovaries are not visualized. No obvious abnormality. Bladder is normal and measures 5.3 x 3.4 x 5.0 cm. IMPRESSION: Limited examination due to body habitus. Ovaries not visualized. No pelvic fluid or adnexal mass lesion. MTDD
== END ==
LOC: M WHC 15:03
PROVIDERS: ATTEND Nurse Practitioner Women's Health
DX: R10.2 Pelvic and perineal pain (principal); Z90.722 Acquired absence of ovaries, bilateral

== ENCOUNTER → 2020-11-28 | Outpatient (REF) | payer OTHER ==
[~2020-11-28] MED LIST changes: +HYDR-3490 PO; -HYDR25TAB PO
[2020-11-28 18:35] LABS: CALCIUM LEVEL 9.1 MG/DL (8.8-10.2); CREATININE FOR GFR 1.45 MG/DL (0.55-1.30); GLOMERULAR FILTRATION RATE 39.2 (>45)
[2020-11-28 20:36] LABS: HEMOGLOBIN A1c 10.4 %
== END ==
LOC: M SFHCADAM 14:13
PROVIDERS: ATTEND Family Medicine
DX: E11.9 Type 2 diabetes mellitus without complications (principal)

== ENCOUNTER → 2021-01-13 | Outpatient (CLI) | payer OTHER ==
--- NOTE | 2021-01-13 18:42 | REP ---
INDICATION: CALCULUS OF KIDNEY COMPARISON: Comparison CT study December 04, 2017.. TECHNIQUE: Helical scanning is acquired in 4 mm axial images were reformatted. Coronal and sagittal MPR images were generated and reviewed. FINDINGS: Preliminary digital support staff radiograph is unremarkable. There are clips in right upper quadrant. The lung bases are clear on axial CT images. The liver and the spleen are borderline enlarged but unchanged in size homogeneous in texture. There are clips in the gallbladder fossa. Normal adrenal glands are observed bilaterally. No pancreatic abnormality is seen. There is no evidence hydronephrosis. No intrarenal calculus is seen. No bladder calculus is observed. Uterus is surgically absent. The appendix is surgically absent as well. IMPRESSION: No urinary tract calculus or hydronephrosis seen. Kidneys appear morphologically intact. No acute abdominal or pelvic abnormality. <Electronically signed by Sukh Ann > 01/13/21 [id number]
== END ==
LOC: M RAD 17:33
PROVIDERS: ATTEND Internal Medicine Nephrology
DX: Z87.442 Personal history of urinary calculi (principal)

== ENCOUNTER → 2021-01-23 | Outpatient (CLI) | payer OTHER ==
--- NOTE | 2021-01-24 11:35 | REP ---
INDICATION: VISUAL DISTURBANCE COMPARISON: 02/10/2018 TECHNIQUE: Hameed scale and color Doppler evaluation using linear high frequency transducer Findings: FINDINGS: Two-dimensional hameed scale and color images demonstrate normal arterial lumen with laminar flow and no appreciable narrowing. Color Doppler interrogation demonstrates normal arterial wave patterns and velocities with no significant spectral broadening. Normal flow direction is appreciated in the bilateral vertebral arteries. ICA peak systolic velocity: Right 55.9 cm/s; Left 84.3 cm/s ICA diastolic velocity: Right 12.6 cm/s; Left 22.8 cm/s ECA peak systolic velocity: Right 102.0 cm/s; Left 74.3 cm/s CCA peak systolic velocity: Right 91.5 cm/s; Left 78.0 cm/s ICA/CCA ratio: Right 0.61 cm/s; Left 1.1 cm/s IMPRESSION: No hemodynamically significant areas of narrowing or stenosis appreciated. Based on set standards narrowing falls within the less than 50% range. <Electronically signed by Steve Garcia > 01/24/21 [id number]
== END ==
LOC: M RAD 14:07
PROVIDERS: ATTEND Ophthalmology
DX: H53.9 Unspecified visual disturbance (principal)

== ENCOUNTER 2021-03-24 10:52 | Emergency (ER) | payer OTHER ==
[~2021-03-24] VITALS: Ht 167.6 cm; Wt 95.5 kg
[~2021-03-24 10:52] MED LIST changes: -BASA100I SQ; -DOXY-259 PO; -DOXY100C37 PO; -HYDR-3910 PO; -LEVO75TA4 PO; -LOSA100T50 PO; -MELA5TAB36 PO; -PARO20TA3 PO; -SPIR-10 PO; -TORS20TA2 PO
[2021-03-24] MEDS ORDERED: PARO20TA3 PO (12:32)
[2021-03-24] MEDS ORDERED: HYDR-3910 PO (12:32)
[2021-03-24] MEDS ORDERED: BASA100I SQ (12:32)
[2021-03-24] MEDS ORDERED: LOSA100T50 PO (12:32)
[2021-03-24] MEDS ORDERED: LEVO75TA4 PO (12:32)
[2021-03-24] MEDS ORDERED: TORS20TA2 PO (12:32)
[2021-03-24] MEDS ORDERED: SPIR-10 PO (12:32)
[2021-03-24] MEDS ORDERED: NS 1,000 ML IV ONE (13:45)
[2021-03-24 14:18] LABS: ABG BASE EXCESS -1.1 (-2.0-2.0); ABG HCO3 22.6 MEQ/L (22.0-26.0); ABG PARTIAL PRESSURE CO2 34.3 mmHg (35.0-45.0); ABG PARTIAL PRESSURE O2 107.9 mmHg (75.0-100.0); ABG STANDARD HCO3 23.6 MEQ/L (22.0-26.0); ABG TOTAL CO2 23.7 MEQ/L (23.0-31.0); ABG pH (ARTERIAL) 7.437 UNITS (7.350-7.450)
[2021-03-24 15:28] LABS: BASO # 0.1 10^3/uL (0.0-0.2); BASO % 0.3 % (0.0-1.0); EOS # 0.3 10^3/uL (0.0-0.5); EOS % 2.2 % (0.0-3.0); HEMATOCRIT 35.8 % (36.0-47.0); HEMOGLOBIN 11.5 g/dl (12.0-15.5); LYMPH # 1.9 10^3/uL (1.5-5.0); MEAN CORPUSCULAR HEMOGLOBIN 29.2 pg (27.0-33.0); MEAN CORPUSCULAR HGB CONC 32.1 g/dl (32.0-36.5); MEAN CORPUSCULAR VOLUME 90.9 fl (80.0-96.0); MONO # 1.2 10^3/uL (0.0-0.8); NEUTROPHILS # 11.2 10^3/uL (1.5-8.5); NEUTROPHILS % 75.8 % (36.0-66.0); PLATELET COUNT, AUTOMATED 292 10^3/uL (150-450); RED BLOOD COUNT 3.94 10^6/uL (4.00-5.40); WHITE BLOOD COUNT 14.8 10^3/uL (4.0-10.0)
[2021-03-24 15:41] LABS: PROTHROMBIN TIME 13.4 SECONDS (12.5-14.3)
[2021-03-24 15:42] LABS: PARTIAL THROMBOPLASTIN TIME 27.6 SECONDS (24.2-38.5)
[2021-03-24 15:47] LABS: ERYTHROCYTE SEDIMENTATION RATE 82 mm/hr (0-30)
[2021-03-24 15:51] LABS: CK-MB VALUE MASS 1.1 NG/ML (<3.6); CPK CREATINE PHOSPHOKINASE 60 U/L (26-192); MB/CK RELATIVE INDEX 1.83 (< OR =4); TROPONIN I < 0.02 NG/ML (< 0.10)
[2021-03-24 15:52] LABS: ALBUMIN 2.9 GM/DL (3.2-5.2); ALT/SGPT 21 U/L (12-78); BILIRUBIN,DIRECT < 0.1 MG/DL (0.0-0.2); BILIRUBIN,TOTAL 0.4 MG/DL (0.2-1.0); CK-MB VALUE MASS 1.2 NG/ML (<3.6); CPK CREATINE PHOSPHOKINASE 81 U/L (26-192); MB/CK RELATIVE INDEX 1.48 (< OR =4); TOTAL PROTEIN 5.8 GM/DL (6.4-8.2); TROPONIN I < 0.02 NG/ML (< 0.10)
--- NOTE | 2021-03-24 16:25 | REP ---
INDICATION: SEPSIS/SHOCK. COMPARISON: 12/06/2017. TECHNIQUE: Single portable AP view of the chest was performed. FINDINGS: There is no acute infiltrate or pulmonary edema. Lungs are clear. The heart is not significantly enlarged. The mediastinal silhouette is unremarkable. The visualized osseous structures are intact. IMPRESSION: No acute pulmonary disease. <Electronically signed by Gonzalez Hameed > 03/24/21 2244
[2021-03-24] MEDS ORDERED: **hydrALAZINE HCL** 25 MG TAB PO ONE (16:40)
[2021-03-24] MEDS ORDERED: VANCOMYCIN HCL 2,000 MG in D5W 500 ML IV ONE (16:45)
[2021-03-24 16:57] VITALS: BP 222/92
[2021-03-24] MEDS ORDERED: VANCOMYCIN HCL 1,000 MG, VIAL MATE ADAPTER 1 EACH in NS 250 ML IV ONE ×6 (17:00)
--- NOTE | 2021-03-24 17:38 | REP ---
INDICATION: calf pain COMPARISON: None. TECHNIQUE: Hameed scale and color Doppler evaluation using linear high frequency transducer. FINDINGS: Ultrasound examination of the right lower extremity deep venous structures from the common femoral vein through the calf/ankle to include the peroneal, and tibial veins demonstrates normal compressibility flow and wave patterns in response to respiration and augmentation. There is no evidence for deep venous thrombosis. IMPRESSION: No evidence for deep venous thrombosis. <Electronically signed by Steve Garcia > 03/24/21 [id number]
[2021-03-24] MEDS ORDERED: DOXY100C37 PO (20:20)
[2021-03-24 20:58] VITALS: BP 169/74
--- NOTE | 2021-03-24 21:22 | ECGEPIP ---
[facility] - ED Test Date: 2021-03-24 Pat Name: SALOME VILLEGAS Department: Room: - Gender: Female Fisher Diving: DESHAWN : 1960 Requested By: SIMON Lynn PA-C Order Number: [id number] Reading MD: Leonel Bowser Measurements Intervals [place] Rate: 53 P: 33 CA: 198 QRS: -27 QRSD: 86 T: 24 QT: 448 QTc: 420 Interpretive Statements Sinus bradycardia Minimal voltage criteria for LVH, may be normal variant ( R in aVL ) Electronically Signed on 03-24-2021 21:22:29 EDT by Leonel Bowser
== END 2021-03-24 21:06 | disposition home or self-care (01) ==
LOC: M ED 10:52
DX: L03.115 Cellulitis of right lower limb (principal); R00.1 Bradycardia, unspecified; I10 Essential (primary) hypertension; E03.9 Hypothyroidism, unspecified; E11.9 Type 2 diabetes mellitus without complications; E78.5 Hyperlipidemia, unspecified; F17.200 Nicotine dependence, unspecified, uncomplicated; J45.909 Unspecified asthma, uncomplicated; Z88.0 Allergy status to penicillin; Z88.1 Allergy status to other antibiotic agents; Z88.6 Allergy status to analgesic agent; Z79.82 Long term (current) use of aspirin; Z79.899 Other long term (current) drug therapy; Z79.4 Long term (current) use of insulin
CPT/HCPCS: 36600; 71045; 80047; 80076; 81001; 82550; 82553; 82803; 83605; 85025; 85610; 85652; 85730; 86140; 87040; 93005; 93041; 93971; 96361; 96365; 96366; 99285; J3370; U0002

== ENCOUNTER → 2021-03-24 | Outpatient (CLI) | payer OTHER ==
[~2021-03-24] MED LIST changes: +BASA100I SQ; +DOXY-259 PO; +DOXY100C37 PO; +HYDR-3910 PO; +LEVO75TA4 PO; +LOSA100T50 PO; +MELA5TAB36 PO; +PARO20TA3 PO; +SPIR-10 PO; +TORS20TA2 PO
== END ==
LOC: M LABSMTC 10:11
PROVIDERS: ATTEND Pediatrics
DX: Z20.822 Contact with and (suspected) exposure to COVID-19 (principal)
CPT/HCPCS: C9803; U0003

== ENCOUNTER 2021-03-27 16:57 | Inpatient (IN) | payer OTHER ==
[~2021-03-27] VITALS: Ht 167.6 cm; Wt 101.3 kg
[~2021-03-27 16:57] MED LIST changes: +BASA100I SQ; +DOXY100C37 PO; +HYDR-3910 PO; +LEVO75TA4 PO; +LOSA100T50 PO; +PARO20TA3 PO; +SPIR-10 PO; +TORS20TA2 PO
[2021-03-27] MEDS ORDERED: VANCOMYCIN HCL 1,000 MG, VIAL MATE ADAPTER 1 EACH in NS 250 ML IV SCH (17:45)
[2021-03-27] MEDS ORDERED: NS 1,000 ML IV SCH (17:45)
--- NOTE | 2021-03-27 18:14 | REP ---
INDICATION: fever. COMPARISON: 03/24/2021 TECHNIQUE: Portable FINDINGS: The technique utilized in obtaining the radiograph has magnified the cardiac silhouette and attenuated the interstitial markings. The superior mediastinal structures are midline. The heart is not enlarged. Lung sahu are clear and the pleural angles are sharp. The osseous structures are stable and intact. IMPRESSION: No acute cardiopulmonary disease or significant change compared to the prior exam. <Electronically signed by You Man > 03/27/21 [id number]
[2021-03-27 19:22] LABS: HEMATOCRIT 32.2 % (36.0-47.0); HEMOGLOBIN 10.3 g/dl (12.0-15.5); MEAN CORPUSCULAR VOLUME 90.7 fl (80.0-96.0); PLATELET COUNT, AUTOMATED 409 10^3/uL (150-450); RED BLOOD COUNT 3.55 10^6/uL (4.00-5.40); WHITE BLOOD COUNT 14.4 10^3/uL (4.0-10.0)
[2021-03-27 19:33] LABS: INR 0.95; PROTHROMBIN TIME 12.9 SECONDS (12.5-14.3)
[2021-03-27 19:51] LABS: ALBUMIN 2.7 GM/DL (3.2-5.2); BILIRUBIN,TOTAL 0.3 MG/DL (0.2-1.0); CREATININE FOR GFR 1.48 MG/DL (0.55-1.30); GLOMERULAR FILTRATION RATE 38.3 (>45); POTASSIUM SERUM 4.7 MEQ/L (3.5-5.1)
[2021-03-27 20:00] LABS: RSV AMPLIFICATION NEGATIVE (NEGATIVE)
[2021-03-27] MEDS ORDERED: DEXTROSE 50% 50 ML SYRINGE IV PRN (20:25)
[2021-03-27] MEDS ORDERED: MAALOX 30 ML SUSP *UDC PO PRN (20:25)
[2021-03-27] MEDS ORDERED: MOM 30ML SUSPENSION UDC PO PRN (20:25)
[2021-03-27] MEDS ORDERED: GLUCAGON INJ 1MG VIAL SC PRN (20:25)
[2021-03-27] MEDS ORDERED: MEROPENEM INJ 1 GM in IV 1 EA IV SCH (20:25)
[2021-03-27] MEDS ORDERED: GLUCOSE 4GM CHEW TABLET PO PRN (20:25)
[2021-03-27] MEDS ORDERED: hydrALAZINE 20MG/ML 1ML VIAL (J0360 PER 20MG) IV PRN (20:25)
[2021-03-27] MEDS ORDERED: DOXY-259 PO (20:27)
[2021-03-27] MEDS ORDERED: VITA50005 PO (20:27)
[2021-03-27] MEDS ORDERED: MELA5TAB36 PO (20:27)
--- NOTE | 2021-03-27 20:59 | REPVR ---
PROCEDURE INFORMATION: Exam: XR Right Foot Exam date and time: 03/27/2021 8:27 PM Age: 60 years old Clinical indication: Other: R/O osteo TECHNIQUE: Imaging protocol: XR Right foot. Views: 3 or more views. COMPARISON: US Duplex, Ext,LOWER veins,unilat 03/24/2021 5:04 PM FINDINGS: Bones/joints: Plantar calcaneal spur. Retrocalcaneal insertional enthesophyte. Mild degenerative changes dorsal midfoot. Soft tissues: Increased opacity demonstrated on the plantar soft tissues forefoot may suggest edema/infection. IMPRESSION: 1. Increased opacity demonstrated on the plantar soft tissues forefoot may suggest edema/infection. 2. Mild degenerative changes. Electronically signed by: Fernando Hyde On 03/27/2021 20:59:09 PM
[2021-03-27] MEDS ORDERED: VANCOMYCIN HCL 1,000 MG, VIAL MATE ADAPTER 1 EACH in NS 250 ML IV ONE (22:00)
[2021-03-27] MEDS: HEPARIN SOD (PORCINE) 5000UNITS/ML 1ML VIAL/SYRINGE SC SCH (22:00)
[2021-03-27] MEDS: HumaLOG INSULIN (NovoLOG) PER UNIT SC SCH (22:09)
[2021-03-27] MEDS: DOCUSATE SODIUM 100MG CAPSULE PO SCH (22:09)
[2021-03-27] MEDS: NS 1,000 ML IV SCH (22:22)
--- NOTE | 2021-03-27 23:26 | HPEPDOC ---
[facility] Medical History & Physical Date of Admission Mar 27, 2021 Date of Service: Mar 27, 2021 History and Physical CHIEF COMPLAINT: Right foot. HISTORY OF PRESENT ILLNESS: 60-year-old female diabetic with peripheral neuropathy, hypertension, hyperlipidemia, depression presents with right foot pain. Patient recently prese nted to the ED with right foot cellulitis and was given vancomycin and oral doxycycline and sent home. Patient tells me that initially she was feeling better but her foot pain started to hurt again and the redness started to increase. She tells me this all started when a few days earlier she was walking barefoot on gravel and believes something got stuck in her foot. She tells me she enjoys walking barefoot despite knowing is a diabetic she is at increased risk of diabetic foot infections and ulcers due to decreased sensation in her feet. Tells me she can't help it, understands the risk but enjoys walking barefoot too much to give it up. She endorses last Saturday night having increased pain in her right foot associated with fevers and chills. She also noted a scab at the bottom of her right foot and she was picking at it and noticed a small amount of discharge. Patient will be admitted for further workup and management. Documented allergy to PCN and meropenem has less chance of reactivity vs cefepime, I reviewed PCP notes from last year and there's a possibility she's not allergic to PCN PAST MEDICAL/SURGICAL HISTORY: Insulin-dependent diabetes noncompliant per PCP with peripheral neuropathy Diabetic retinopathy Depression and anxiety Hypertension Hyperlipidemia Tonsillectomy Hysterectomy Cholecystectomy Cataract surgery SOCIAL HISTORY: Denies alcohol use Denies tobacco use Denies illicit drug use FAMILY HISTORY: Reviewed and none contributory to this admission ALLERGIES: Please see below. REVIEW OF SYSTEMS: 10 point review of systems complete all negative otherwise stated in HPI Endorses a headache. No CP. No SOB. HOME MEDICATIONS: Please see below. PHYSICAL EXAMINATION: Constitutional: Awake and alert, in no apparent distress ENT: Sclera are clear. Mucosa is moist. Respiratory: Lungs CTA bilaterally. No respiratory distress. Cardiovascular: Regular rate and rhythm Gastrointestinal: Abdomen is soft, non distended, non tender Musculoskeletal: No lower extremity pitting edema. Right foot slightly swollen around the site of the cellulitis Neurologic: No focal neurological deficit. Mental Status: A&O x3, normal affect Skin: Clear area of cellulitis solo the right foot with small penetrating point injury in the center with scab formed over it also small area suspicious for small abscess in the area of the erythema was marked. LABORATORY DATA: See below. IMAGING: See chart MICROBIOLOGY: Please see below. ASSESSMENT/PLAN # Right foot cellulitis with possible abscess. Afebrile but with leukocytosis in ED. Start IV meropenem and vancomycin (MRSA and Pseudomonas coverage). Fu BCx. Follow blood cultures. Fu wound culture. Consult podiatry in the morning for drainage of abscess. # DM with peripheral neuropathy: Insulin-dependent. Noncompliant. ISS. This likely contributed to her foot injury and infection. Frequent Accu-Cheks. Hypo glycemic precautions. Levemir 25 units twice daily reduced home dose uptitrated as needed. # ?CHF: on diuretics at home, unclear why. She denies hisotry of CHF. I don't see hx of CHF in the chart. Will resume home meds for now. She is also on full dose aspirin when asked about this she tells me she takes it on her own and that it is not prescribed by her primary care physician. I asked her to review the necessity of taking full dose aspirin with her PCP. She denies history of heart attacks or strokes. # Hypertensive urgency: Endorses a headache. Continue home meds. Monitor and titrate. Tele monitoring. IV hydralazine PRN SBP>160 # CKD3: Cr near baseline. Monitor. Avoid nephrotoxins. # Depression and anxiety: Continue home medications # Obesity: BMI 34. Complicates care # DVT prophylaxis: Heparin A Yousef Hospitalist Vital Signs Vital Signs Date Time Temp Pulse Resp B/P (MAP) Pulse Ox O2 Delivery O2 Flow Rate FiO2 03/27/21 23:00 68 16 224/100 (141) 91 Room Air 03/27/21 16:58 98.5 Laboratory Data Labs 24H Laboratory Tests 2 03/27/21 18:47: Nucleated Red Blood Cells % (auto) 0.0, Urine Color YELLOW, Urine Appearance CLEAR, Urine pH 5.0, Urine Specific Leeper 1.011, Urine Protein 2+H, Urine Glucose (UA) NEGATIVE, Urine Ketones NEGATIVE, Urine Blood NEGATIVE, Urine Nitrite NEGATIVE, Urine Bilirubin NEGATIVE, Urine Urobilinogen 0.2, Urine Leukocyte Esterase NEGATIVE, Urine WBC (Auto) 0, Urine RBC (Auto) 3, Urine Hyaline Casts (Auto) 14, Urine Bacteria (Auto) NEGATIVE, Urine Squamous Epithelial Cells 0, Urine Sperm (Auto) , Anion Gap 6L, Glomerular Filtration Rate 38.3L, Calcium Level 9.0, Total Bilirubin 0.3, Aspartate Amino Transf (AST/SGOT) 11, Alanine Aminotransferase (ALT/SGPT) 22, Alkaline Phosphatase 92, Total Protein 6.0L, Albumin 2.7L, Albumin/Globulin Ratio 0.8L, Coronavirus (COVID-19)(PCR) NEGATIVE, Influenza Type A (RT-PCR) NEGATIVE, Influenza Type B (RT-PCR) NEGATIVE, Respiratory Syncytial Virus (PCR) NEGATIVE 03/27/21 18:48: Prothrombin Time 12.9, Prothromb Time International Ratio 0.95 03/27/21 22:07: Bedside Glucose (Misc Panel) 81 CBC/BMP Laboratory Tests 03/27/21 18:47 Microbiology Microbiology 03/27/21 Blood Culture, Received Pending 03/27/21 Blood Culture, Received Pending Home Medications Scheduled Ascorbic Acid (Vitamin C) 500 Mg Tab, 1,000 MG PO DAILY Aspirin (Aspirin EC) 325 Mg Tabec, 325 MG PO DAILY Clonazepam (Clonazepam) 1 Mg Tab, 1 MG PO QHS Doxycycline Hyclate (Doxycycline Hyclate) 100 Mg Tablet.dr, 100 MG PO BID FILLED 03/25/21 FOR 7 DAYS Ergocalciferol (Vitamin D2) (Vitamin D2) 50,000 Units Cap, 50,000 UNITS PO QWEEK SUNDAYS Hydralazine HCl (Hydralazine HCl) 25 Mg Tablet, 50 MG PO BID Insulin Glargine,Hum.rec.anlog (Basaglar Kwikpen U-100) 100 Unit/1 Ml Insuln.pen, 50 UNIT SQ BID MAY TAKE UP TO 60 UNITS IF NEEDED Krill/Om-3/Dha/Epa/Phospho/Ast (Krill Oil 500 mg Softgel) 1 Cap Cap, 500 MG PO DAILY L.acidoph/L.bulg/B.bif/S.therm (Bacid Caplet) 1 Tab Tab, 1 TAB PO DAILY Levothyroxine Sodium (Levothyroxine Sodium) 75 Mcg Tablet, 75 MCG PO DAILY Losartan Potassium (Losartan Potassium) 100 Mg Tablet, 100 MG PO DAILY Melatonin (Melatonin) 5 Mg Tablet, 5 MG PO QHS Metoprolol Succinate (Metoprolol Succinate) 100 Mg Tab, 100 MG PO DAILY Paroxetine HCl (Paroxetine HCl) 20 Mg Tablet, 20 MG PO DAILY Spironolactone (Spironolactone) 25 Mg Tablet, 25 MG PO DAILY Torsemide (Torsemide) 20 Mg Tablet, 10 MG PO DAILY Scheduled PRN Dicyclomine HCl (Dicyclomine HCl) 10 Mg Cap, 10 MG PO DAILY PRN for STOMACH CRAMPS Allergies Coded Allergies: Cephalosporins (Verified Allergy, Unknown, 03/24/21) Penicillins (Verified Allergy, Unknown, 03/24/21) ciprofloxacin (Verified Allergy, Unknown, 03/24/21) A-FIB/CHADSVASC A-FIB History Current/History of A-Fib/PAF?: No DALLAS QUINTERO MD Mar 27, 2021 23:26
[2021-03-28 01:46] VITALS: BP 166/74
[2021-03-28] MEDS: MEROPENEM INJ 1 GM in IV 1 EA IV SCH ×2 (02:08→12:19)
[2021-03-28] MEDS: RAMELTEON 8 MG TAB (ROZEREM) PO PRN ×2 (02:08→22:35)
[2021-03-28] MEDS: ACETAMINOPHEN TAB 650MG DOSE (2X325MG) PO PRN ×3 (02:08→22:44)
[2021-03-28] MEDS ORDERED: SLF 3 ML SYR IV PRN (02:40)
[2021-03-28 03:27] VITALS: BP 160/72
[2021-03-28] MEDS: LEVOTHYROXINE 75MCG TABLET (0.075MG) PO SCH (05:08)
[2021-03-28] MEDS: SLF 3 ML SYR IV SCH ×3 (05:09→22:22)
[2021-03-28] MEDS: HEPARIN SOD (PORCINE) 5000UNITS/ML 1ML VIAL/SYRINGE SC SCH ×3 (05:09→22:19)
[2021-03-28 05:54] LABS: HEMATOCRIT 28.2 % (36.0-47.0); HEMOGLOBIN 9.1 g/dl (12.0-15.5); MEAN CORPUSCULAR HEMOGLOBIN 29.3 pg (27.0-33.0); MEAN CORPUSCULAR HGB CONC 32.3 g/dl (32.0-36.5); MEAN CORPUSCULAR VOLUME 90.7 fl (80.0-96.0); PLATELET COUNT, AUTOMATED 355 10^3/uL (150-450); RED BLOOD COUNT 3.11 10^6/uL (4.00-5.40); WHITE BLOOD COUNT 13.4 10^3/uL (4.0-10.0)
[2021-03-28] MEDS: NS 1,000 ML IV SCH (05:57)
[2021-03-28 06:22] LABS: CALCIUM LEVEL 8.2 MG/DL (8.8-10.2); CREATININE FOR GFR 1.34 MG/DL (0.55-1.30); MAGNESIUM LEVEL 2.2 MG/DL (1.8-2.4); POTASSIUM SERUM 4.6 MEQ/L (3.5-5.1)
[2021-03-28 07:28] VITALS: BP 145/68
[2021-03-28] MEDS: HumaLOG INSULIN (NovoLOG) PER UNIT SC SCH ×4 (08:37→22:16)
[2021-03-28] MEDS: LEVEMIR (INSULIN DETEMIR) 1 UNITS/0.01ML SC SCH ×2 (08:37→22:16)
[2021-03-28] MEDS: **hydrALAZINE HCL** 25 MG TAB PO SCH ×2 (08:38→22:28)
[2021-03-28] MEDS: ASPIRIN ENTERIC 325 MG TAB PO SCH (08:38)
[2021-03-28] MEDS: PARoxetine 20MG TABLET PO SCH (08:38)
[2021-03-28] MEDS: SPIRONOLACTONE 25 MG TAB PO SCH (08:38)
[2021-03-28] MEDS: LOSARTAN 50MG TABLET PO SCH (08:38)
[2021-03-28] MEDS: METOPROLOL SUCC (TopROL XL) 100MG *XL* TAB PO SCH (08:39)
[2021-03-28] MEDS: DOCUSATE SODIUM 100MG CAPSULE PO SCH ×2 (08:39→22:19)
[2021-03-28] MEDS ORDERED: TORSEMIDE 10 MG TABLET PO SCH (09:00)
[2021-03-28] MEDS: VANCOMYCIN HCL 1,000 MG, VIAL MATE ADAPTER 1 EACH in NS 250 ML IV SCH ×2 (11:02→22:22)
[2021-03-28 11:15] VITALS: BP 131/47
[2021-03-28 14:00] VITALS: BP 135/50
--- NOTE | 2021-03-28 15:47 | IPNPDOC ---
Text Note Date of Service The patient was seen on 03/28/21. NOTE Subjective: No any acute events overnight. Patient denied fever, chills, vomit ing diarrhea or dysuria Objective: Objective: GENERAL APPEARANCE: An obese female HEENT: no scleral icterus, no JVD, EOMI CARDIOVASCULAR: S1S2 LUNGS: Diminished lung sounds bilaterally ABDOMEN: soft & not tender w palpitation MUSCULOSKELETAL: no cyanosis, no swelling INTEGUMENT: Right foot plantar swelling and redness NEUROLOGICAL: cranial nerve function from 2-12 intact intact, follows commands, speech not dysarthric Assessment and plan Patient 60 years old female with past history of peripheral neuropathy, hypertension, hyperlipidemia, depression presents with right foot pain. Patient was found to have a right foot cellulitis. Right foot cellulitis X-ray Increased opacity demonstrated on the plantar soft tissues forefoot We'll check sedimentation rate, CRP, procalcitonin, MRSA screen Vancomycin IV, meropenem IV Appreciate/agree with registered pharmacist consult Type 2 diabetes Insulin sliding scale Diabetes diet Detemir twice a day Chronic kidney diseases Creatinine at baseline Hypertensive urgency/hypertension Resolved Continue home cardioprotective medication Depression and anxiety Continue home meds Hypothyroidism Continue levothyroxine Obesity: BMI 34. Complicates care VS,Fishbone, I+O VS, Fishbone, I+O Laboratory Tests 03/27/21 18:47 03/28/21 05:07 Vital Signs Date Time Temp Pulse Resp B/P (MAP) Pulse Ox O2 Delivery O2 Flow Rate FiO2 03/28/21 14:00 98.6 56 20 135/50 (78) 95 03/28/21 07:28 Room Air I&O- Last 24 Hours up to 6 AM 03/28/21 06:00 Intake Total 1680 ml Output Total 500 ml Balance 1180 ml BHAVANA FULLER DO Mar 28, 2021 15:47
[2021-03-28 16:01] LABS: C REACTIVE PROTEIN QUANTITATIV 7.04 MG/DL (0.00-0.30)
[2021-03-28 16:37] LABS: ERYTHROCYTE SEDIMENTATION RATE 109 mm/hr (0-30)
[2021-03-28] MEDS ORDERED: VANCOMYCIN HCL 1,000 MG, VIAL MATE ADAPTER 1 EACH in NS 250 ML IV SCH (20:00)
[2021-03-28 22:00] VITALS: BP 130/60
[2021-03-28] MEDS: clonazePAM 1 MG TAB PO SCH (22:19)
[2021-03-29] MEDS: MEROPENEM INJ 1 GM in IV 1 EA IV SCH ×2 (01:44→12:41)
[2021-03-29] MEDS: SLF 3 ML SYR IV SCH ×3 (05:29→21:38)
[2021-03-29] MEDS: HEPARIN SOD (PORCINE) 5000UNITS/ML 1ML VIAL/SYRINGE SC SCH ×3 (05:29→21:36)
[2021-03-29] MEDS: LEVOTHYROXINE 75MCG TABLET (0.075MG) PO SCH (05:30)
[2021-03-29 05:41] VITALS: BP 130/62
[2021-03-29] MEDS: HumaLOG INSULIN (NovoLOG) PER UNIT SC SCH ×4 (07:30→21:00)
[2021-03-29] MEDS: LEVEMIR (INSULIN DETEMIR) 1 UNITS/0.01ML SC SCH ×2 (08:35→21:38)
[2021-03-29] MEDS: SPIRONOLACTONE 25 MG TAB PO SCH (08:37)
[2021-03-29] MEDS: PARoxetine 20MG TABLET PO SCH (08:37)
[2021-03-29] MEDS: ACETAMINOPHEN TAB 650MG DOSE (2X325MG) PO PRN ×3 (08:38→21:37)
[2021-03-29] MEDS: ASPIRIN ENTERIC 325 MG TAB PO SCH (08:38)
[2021-03-29] MEDS: DOCUSATE SODIUM 100MG CAPSULE PO SCH ×2 (08:38→21:36)
[2021-03-29] MEDS: **hydrALAZINE HCL** 25 MG TAB PO SCH ×2 (08:41→21:36)
[2021-03-29] MEDS: LOSARTAN 50MG TABLET PO SCH (08:41)
[2021-03-29] MEDS: METOPROLOL SUCC (TopROL XL) 100MG *XL* TAB PO SCH (08:42)
--- NOTE | 2021-03-29 10:38 | CR ---
CONSULTATION DATE: 03/28/2021 REASON FOR CONSULTATION: Right foot infection. HISTORY OF PRESENT ILLNESS: Adriana is a 60 year old female who female who presented to the ER with worsening right foot infection. She states she walks barefoot and believes she may have stepped on something. She had been started on antibiotics and states she does feel a little bit better. PAST MEDICAL HISTORY: Significant for diabetes with neuropathy, retinopathy, depression, anxiety, hypertension, hyperlipidemia, tonsillectomy, hysterectomy, cholecystectomy, cataract surgery. SOCIAL HISTORY: Denies alcohol or tobacco use. FAMILY HISTORY: Noncontributory. ALLERGIES: Cephalosporins, penicillins, statins, amlodipine, Ciprofloxacin and Lisinopril. REVIEW OF SYSTEMS: Negative for nausea, vomiting, fever or chills since admission. PHYSICAL EXAMINATION: Vitals have been reviewed. She has been afebrile. Labs have been reviewed. White blood cell count is 14.4. X-ray studies were taken and shows suggestions of edema and infection but no obvious osteomyelitis or foreign body. Lower extremity examination: There is erythema and edema of the right foot with a puncture wound site at the right plantar arch. ASSESSMENT: A 60-year-old diabetic female with cellulitis and abscess of the right foot. PLAN: A bedside incision and drainage was performed using a #15 blade at the wound site on the arch. No purulent drainage was able to be expressed. Wound culture was taken of this wound. For now, continue antibiotics. Monitor for improvement. If unimproved, she may benefit from MRI to evaluate for deep space abscess.
[2021-03-29 10:49] LABS: BASO # 0.1 10^3/uL (0.0-0.2); BASO % 0.7 % (0.0-1.0); EOS # 0.4 10^3/uL (0.0-0.5); EOS % 3.3 % (0.0-3.0); HEMATOCRIT 32.1 % (36.0-47.0); HEMOGLOBIN 10.1 g/dl (12.0-15.5); LYMPH # 2.6 10^3/uL (1.5-5.0); LYMPH % 20.4 % (24.0-44.0); MEAN CORPUSCULAR HEMOGLOBIN 28.9 pg (27.0-33.0); MEAN CORPUSCULAR HGB CONC 31.5 g/dl (32.0-36.5); MEAN CORPUSCULAR VOLUME 91.7 fl (80.0-96.0); MONO # 0.9 10^3/uL (0.0-0.8); MONO % 7.4 % (2.0-8.0); NEUTROPHILS # 8.4 10^3/uL (1.5-8.5); NEUTROPHILS % 66.8 % (36.0-66.0); PLATELET COUNT, AUTOMATED 423 10^3/uL (150-450); WHITE BLOOD COUNT 12.5 10^3/uL (4.0-10.0)
[2021-03-29] MEDS: VANCOMYCIN HCL 1,000 MG, VIAL MATE ADAPTER 1 EACH in NS 250 ML IV SCH (10:49)
[2021-03-29 11:17] LABS: CALCIUM LEVEL 8.9 MG/DL (8.8-10.2); CREATININE FOR GFR 1.24 MG/DL (0.55-1.30)
[2021-03-29 11:24] LABS: ALBUMIN 2.6 GM/DL (3.2-5.2); BILIRUBIN,TOTAL 0.2 MG/DL (0.2-1.0); CREATININE FOR GFR 1.24 MG/DL (0.55-1.30); MAGNESIUM LEVEL 2.3 MG/DL (1.8-2.4); TOTAL PROTEIN 5.8 GM/DL (6.4-8.2)
[2021-03-29] MEDS ORDERED: PROHANCE 279.3MG/ML 5ML VIAL As Ordered ONE (15:00)
[2021-03-29 16:00] VITALS: BP 140/62
--- NOTE | 2021-03-29 16:27 | IPNPDOC ---
Text Note Date of Service The patient was seen on 03/29/21. NOTE Subjective: No any acute events overnight. Patient denied fever, chills, vomit ing diarrhea or dysuria. Patient stated that she feels better today, no foot pain Objective: Objective: GENERAL APPEARANCE: An obese female HEENT: no scleral icterus, no JVD, EOMI CARDIOVASCULAR: S1S2 LUNGS: Diminished lung sounds bilaterally ABDOMEN: soft & not tender w palpitation MUSCULOSKELETAL: no cyanosis, no swelling INTEGUMENT: Right foot plantar swelling and redness NEUROLOGICAL: cranial nerve function from 2-12 intact intact, follows commands, speech not dysarthric Assessment and plan Patient 60 years old female with past history of peripheral neuropathy, hypertension, hyperlipidemia, depression presents with right foot pain. Patient was found to have a right foot cellulitis. Right foot cellulitis X-ray Increased opacity demonstrated on the plantar soft tissues forefoot sedimentation rate and CRP elevated, procalcitonin within normal limit, MRSA screen negative Wound culture positive for Staphylococcus aureus, await sensitivity Continue Vancomycin IV, DC meropenem IV Dr. Sprague did I/D yesterday Will proceed with MRI to rule out deep abscess Type 2 diabetes Insulin sliding scale Diabetes diet Detemir twice a day Chronic kidney diseases Creatinine at baseline Hypertensive urgency/hypertension Resolved Continue home cardioprotective medication Depression and anxiety Continue home meds Hypothyroidism Continue levothyroxine Obesity: BMI 34. Complicated care VS,Parul, I+O VS, Fishbone, I+O Laboratory Tests 03/29/21 10:18 Vital Signs Date Time Temp Pulse Resp B/P (MAP) Pulse Ox O2 Delivery O2 Flow Rate FiO2 03/29/21 08:42 74 146/64 03/29/21 06:00 97.8 18 96 Room Air I&O- Last 24 Hours up to 6 AM 03/29/21 06:00 Intake Total 2640 ml Output Total 600 ml Balance 2040 ml BHAVANA FULLER DO Mar 29, 2021 16:27
--- NOTE | 2021-03-29 16:44 | REP ---
INDICATION: right foot ulcer/infection, evaluate for abscess. COMPARISON: Radiographs 03/27/2021. TECHNIQUE: Multiple sequences obtained in the axial, coronal and sagittal planes prior to and following the intravenous administration of 10 mL ProHance. FINDINGS: There is ill-defined low signal on T1 and high signal on T2 in the distal half of the 1st metatarsal. There is enhancement of the bone in this region. The findings are suspicious for osteomyelitis. No other abnormal bone marrow signal or enhancement is seen in the osseous structures of the right foot. There is no occult fracture. There is no dislocation. There is diffuse moderate to severe soft tissue edema, most significantly in the dorsal soft tissues. There is ill-defined enhancement of the soft tissues forefoot predominantly in the plantar aspect compatible with cellulitis. No abscess or other fluid collection is seen. No significant joint effusion is seen. IMPRESSION: Findings suspicious for osteomyelitis of the distal half of the 1st metatarsal. Diffuse soft tissue edema. Cellulitis of the forefoot. No abscess collection seen. <Electronically signed by Gonzalez Hameed > 03/29/21 0152
[2021-03-29 21:07] VITALS: BP 160/75
[2021-03-29] MEDS: clonazePAM 1 MG TAB PO SCH (21:36)
[2021-03-30] MEDS ORDERED: VANCOMYCIN HCL 750 MG, VIAL MATE ADAPTER 1 EACH in NS 250 ML IV SCH (02:00)
[2021-03-30] MEDS: SLF 3 ML SYR IV SCH ×3 (05:47→21:51)
[2021-03-30] MEDS: HEPARIN SOD (PORCINE) 5000UNITS/ML 1ML VIAL/SYRINGE SC SCH ×3 (05:47→21:47)
[2021-03-30] MEDS: LEVOTHYROXINE 75MCG TABLET (0.075MG) PO SCH (05:47)
[2021-03-30 08:22] LABS: BASO # 0.1 10^3/uL (0.0-0.2); BASO % 0.6 % (0.0-1.0); EOS # 0.4 10^3/uL (0.0-0.5); EOS % 3.3 % (0.0-3.0); HEMATOCRIT 29.9 % (36.0-47.0); HEMOGLOBIN 9.5 g/dl (12.0-15.5); LYMPH # 2.7 10^3/uL (1.5-5.0); LYMPH % 23.9 % (24.0-44.0); MEAN CORPUSCULAR HEMOGLOBIN 29.1 pg (27.0-33.0); MEAN CORPUSCULAR HGB CONC 31.8 g/dl (32.0-36.5); MEAN CORPUSCULAR VOLUME 91.7 fl (80.0-96.0); MONO # 0.8 10^3/uL (0.0-0.8); MONO % 7.2 % (2.0-8.0); NEUTROPHILS # 7.3 10^3/uL (1.5-8.5); NEUTROPHILS % 63.3 % (36.0-66.0); PLATELET COUNT, AUTOMATED 388 10^3/uL (150-450); RED BLOOD COUNT 3.26 10^6/uL (4.00-5.40); WHITE BLOOD COUNT 11.5 10^3/uL (4.0-10.0)
[2021-03-30 08:54] LABS: ALBUMIN 2.5 GM/DL (3.2-5.2); BILIRUBIN,TOTAL 0.1 MG/DL (0.2-1.0); CALCIUM LEVEL 8.6 MG/DL (8.8-10.2); CREATININE FOR GFR 1.2 MG/DL (0.55-1.30); GLOMERULAR FILTRATION RATE 48.8 (>45); POTASSIUM SERUM 4.5 MEQ/L (3.5-5.1); TOTAL PROTEIN 6.1 GM/DL (6.4-8.2)
[2021-03-30] MEDS: DOCUSATE SODIUM 100MG CAPSULE PO SCH ×2 (09:00→21:48)
[2021-03-30] MEDS: LEVEMIR (INSULIN DETEMIR) 1 UNITS/0.01ML SC SCH ×2 (09:15→21:48)
[2021-03-30] MEDS: HumaLOG INSULIN (NovoLOG) PER UNIT SC SCH ×4 (09:15→21:00)
[2021-03-30] MEDS: ASPIRIN ENTERIC 325 MG TAB PO SCH (09:16)
[2021-03-30] MEDS: **hydrALAZINE HCL** 25 MG TAB PO SCH (09:20)
[2021-03-30] MEDS: LOSARTAN 50MG TABLET PO SCH (09:20)
[2021-03-30] MEDS: SPIRONOLACTONE 25 MG TAB PO SCH (09:21)
[2021-03-30] MEDS: PARoxetine 20MG TABLET PO SCH (09:21)
[2021-03-30] MEDS: METOPROLOL SUCC (TopROL XL) 100MG *XL* TAB PO SCH (09:22)
[2021-03-30] MEDS: ACETAMINOPHEN TAB 650MG DOSE (2X325MG) PO PRN (12:41)
[2021-03-30] MEDS ORDERED: CEPH500T PO (12:48)
[2021-03-30] MEDS ORDERED: **hydrALAZINE** 50 MG TAB PO ONE (13:00)
[2021-03-30 14:00] VITALS: BP 156/82
--- NOTE | 2021-03-30 14:55 | IPN ---
PROGRESS NOTE DATE: 03/30/2021 Patient seen and examined. Denies overnight complaints. Vital signs are reviewed. She has remained afebrile. Labs are reviewed. White blood cell count is improved to 11.5. MRI: No evidence of abscess. There are findings suggestive e of osteomyelitis of the distal metatarsal. LOWER EXTREMITY EXAMINATION: The erythema is improved. There is no ulceration or area near the 1st metatarsal. There remains a wound in the middle of the arch. ASSESSMENT: A 60-year-old female with cellulitis, abscess. PLAN: Patient okay to be discharged on oral antibiotics. She should have followup with me in the office next week.
--- NOTE | 2021-03-30 15:40 | IPNPDOC ---
Text Note Date of Service The patient was seen on 03/30/21. NOTE Subjective: No any acute events overnight. Patient denied fever, chills, vomi ting diarrhea or dysuria. Objective: Objective: GENERAL APPEARANCE: An obese female HEENT: no scleral icterus, no JVD, EOMI CARDIOVASCULAR: S1S2 LUNGS: Diminished lung sounds bilaterally ABDOMEN: soft & not tender w palpitation MUSCULOSKELETAL: no cyanosis, no swelling INTEGUMENT: Mild Right foot plantar swelling and redness NEUROLOGICAL: cranial nerve function from 2-12 intact intact, follows commands, speech not dysarthric Assessment and plan Patient 60 years old female with past history of peripheral neuropathy, hypertension, hyperlipidemia, depression presents with right foot pain. Patient was found to have a right foot cellulitis. Right foot cellulitis X-ray Increased opacity demonstrated on the plantar soft tissues forefoot sedimentation rate and CRP elevated, procalcitonin within normal limit, MRSA screen negative Wound culture positive for Staphylococcus aureus, MSSA Clindamycin by mouth. Patient has multiple allergy including cephalosporin and penicillin Dr. Sprague did I/D on 03/28/21 MRI showed some suspicion for osteomyelitis however I discussed findings with regional facilities specialist team. Dr. Sprague thinks it's not osteomyelitis and patient needs 10 days by mouth antibiotics in the outpatient settings Type 2 diabetes Insulin sliding scale Diabetes diet Detemir twice a day Chronic kidney diseases Creatinine at baseline Hypertensive urgency/hypertension I increased the dose of hydralazine but control blood pressure Continue home cardioprotective medication Depression and anxiety Continue home meds Hypothyroidism Continue levothyroxine Obesity: BMI 34. Complicated care VS,Parul, I+O VS, Benniee, I+O Laboratory Tests 03/30/21 08:05 Vital Signs Date Time Temp Pulse Resp B/P (MAP) Pulse Ox O2 Delivery O2 Flow Rate FiO2 03/30/21 14:00 98.2 53 13 156/82 (106) 100 Room Air I&O- Last 24 Hours up to 6 AM 03/30/21 06:00 Intake Total 1610 ml Output Total 0 ml Balance 1610 ml BHAVANA FULLER DO Mar 30, 2021 15:40
[2021-03-30] MEDS: CLINDAMYCIN 150MG CAPSULE PO SCH ×2 (17:03→23:23)
[2021-03-30] MEDS ORDERED: **hydrALAZINE** 50 MG TAB PO SCH (21:00)
[2021-03-30] MEDS: clonazePAM 1 MG TAB PO SCH (21:48)
[2021-03-30] MEDS: **hydrALAZINE** 50 MG TAB PO SCH (21:50)
[2021-03-30 22:00] VITALS: BP 140/70
[2021-03-31] MEDS: SLF 3 ML SYR IV SCH (06:00)
[2021-03-31 06:18] VITALS: BP 165/78
[2021-03-31] MEDS: HEPARIN SOD (PORCINE) 5000UNITS/ML 1ML VIAL/SYRINGE SC SCH (06:22)
[2021-03-31] MEDS: LEVOTHYROXINE 75MCG TABLET (0.075MG) PO SCH (06:22)
[2021-03-31] MEDS: LOSARTAN 50MG TABLET PO SCH (09:14)
[2021-03-31] MEDS: ASPIRIN ENTERIC 325 MG TAB PO SCH (09:15)
[2021-03-31] MEDS: PARoxetine 20MG TABLET PO SCH (09:15)
[2021-03-31] MEDS: CLINDAMYCIN 150MG CAPSULE PO SCH (09:15)
[2021-03-31] MEDS: ACETAMINOPHEN TAB 650MG DOSE (2X325MG) PO PRN (09:15)
[2021-03-31] MEDS: METOPROLOL SUCC (TopROL XL) 100MG *XL* TAB PO SCH (09:16)
[2021-03-31] MEDS: DOCUSATE SODIUM 100MG CAPSULE PO SCH (09:16)
[2021-03-31 09:17] VITALS: BP 165/78
[2021-03-31] MEDS: LEVEMIR (INSULIN DETEMIR) 1 UNITS/0.01ML SC SCH (09:17)
[2021-03-31] MEDS: **hydrALAZINE** 50 MG TAB PO SCH (09:17)
[2021-03-31] MEDS: SPIRONOLACTONE 25 MG TAB PO SCH (09:17)
[2021-03-31] MEDS: HumaLOG INSULIN (NovoLOG) PER UNIT SC SCH (09:18)
[2021-03-31] MEDS ORDERED: CLIN150C15 PO (10:31)
[2021-03-31] MEDS ORDERED: FLUC150T PO (10:31)
[2021-03-31] MEDS ORDERED: HYDR-3910 PO (10:33)
[2021-03-31] MEDS ORDERED: FLUCONAZOLE 50MG TABLET PO ONE (13:00)
--- NOTE | 2021-03-31 13:16 | DS.PDOC ---
Discharge Summary General Date of Admission Mar 27, 2021 at 20:23 Date of Discharge 03/31/21 Discharge Summary PROCEDURES PERFORMED DURING STAY: [None]. ADMITTING DIAGNOSES: Right foot cellulitis Type 2 diabetes Chronic kidney diseases Hypertensive urgency/hypertension Depression and anxiety Hypothyroidism Obesity: BMI 34. Complicated care DISCHARGE DIAGNOSES: Right foot cellulitis Type 2 diabetes Chronic kidney diseases Hypertensive urgency/hypertension Depression and anxiety Hypothyroidism Obesity: BMI 34. Complicated care COMPLICATIONS/CHIEF COMPLAINT: Cellulitis,Hypertensive Urgency. HISTORY OF PRESENT ILLNESS: Patient 60 years old female with past history of peripheral neuropathy, hypertension, hyperlipidemia, depression presents with right foot pain. Patient was found to have a right foot cellulitis. HOSPITAL COURSE: During the hospital stay the following issues addressed Right foot cellulitis X-ray Increased opacity demonstrated on the plantar soft tissues forefoot sedimentation rate and CRP elevated, procalcitonin within normal limit, MRSA screen negative Wound culture positive for Staphylococcus aureus, MSSA Clindamycin by mouth. Patient has multiple allergy including cephalosporin and penicillin Dr. Sprague did I/D on 03/28/21 MRI showed some suspicion for osteomyelitis however I discussed findings with house wirer helper team. Dr. Sprague thinks it's not osteomyelitis and patient needs 10 days by mouth antibiotics in the outpatient settings Type 2 diabetes Insulin sliding scale Diabetes diet Detemir twice a day Chronic kidney diseases Creatinine at baseline Hypertensive urgency/hypertension I increased the dose of hydralazine but control blood pressure Continue home cardioprotective medication Depression and anxiety Continue home meds Hypothyroidism Continue levothyroxine Obesity: BMI 34. Complicated care DISCHARGE MEDICATIONS: Please see below. ALLERGIES: Please see below. PHYSICAL EXAMINATION ON DISCHARGE: VITAL SIGNS: Please see below. GENERAL APPEARANCE: An obese female HEENT: no scleral icterus, no JVD, EOMI CARDIOVASCULAR: S1S2 LUNGS: Diminished lung sounds bilaterally ABDOMEN: soft & not tender w palpitation MUSCULOSKELETAL: no cyanosis, no swelling INTEGUMENT: Mild Right foot plantar swelling and redness NEUROLOGICAL: cranial nerve function from 2-12 intact intact, follows commands, speech not dysarthric LABORATORY DATA: Please see below. IMAGING: see above PROGNOSIS: fair ACTIVITY: [As tolerated]. DIET: Diabetes DISPOSITION: Home Health Service. ITEMS TO FOLLOWUP ON ON OUTPATIENT: Follow-up with house wirer helper in 3-4 days DISCHARGE CONDITION: [Stable]. TIME SPENT ON DISCHARGE: 40 minutes. Vital Signs/I&Os Vital Signs Date Time Temp Pulse Resp B/P (MAP) Pulse Ox O2 Delivery O2 Flow Rate FiO2 03/31/21 09:17 165/78 03/31/21 09:16 54 03/31/21 06:18 97.9 17 94 Room Air I&O- Last 24 Hours up to 6 AM 03/31/21 06:00 Intake Total 1840 ml Output Total 0 ml Balance 1840 ml Microbiology Microbiology 03/28/21 Wound Culture - Final, Complete Staphylococcus Aureus 03/28/21 Gram Stain - Final, Complete 03/28/21 Wound Culture - Final, Complete Staphylococcus Aureus 03/27/21 Blood Culture - Preliminary, Resulted No Growth after 72 hours. All specime... 03/27/21 Blood Culture - Preliminary, Resulted No Growth after 72 hours. All specime... Discharge Medications Scheduled Ascorbic Acid (Vitamin C) 500 Mg Tab, 1,000 MG PO DAILY, (Reported) Aspirin (Aspirin EC) 325 Mg Tabec, 325 MG PO DAILY, (Reported) Clindamycin Hcl (Clindamycin HCl) 150 Mg Capsule, 300 MG PO Q8H Clonazepam (Clonazepam) 1 Mg Tab, 1 MG PO QHS, (Reported) Ergocalciferol (Vitamin D2) (Vitamin D2) 50,000 Units Cap, 50,000 UNITS PO QWEEK, (Reported) SUNDAYS Fluconazole (Fluconazole) 150 Mg Tablet, 1 TAB PO ONCE for yeast infection Hydralazine HCl (Hydralazine HCl) 25 Mg Tablet, 50 MG PO TID Insulin Glargine,Hum.rec.anlog (Basaglar Kwikpen U-100) 100 Unit/1 Ml Insuln.pen, 50 UNIT SQ BID, (Reported) MAY TAKE UP TO 60 UNITS IF NEEDED Krill/Om-3/Dha/Epa/Phospho/Ast (Krill Oil 500 mg Softgel) 1 Cap Cap, 500 MG PO DAILY, (Reported) L.acidoph/L.bulg/B.bif/S.therm (Bacid Caplet) 1 Tab Tab, 1 TAB PO DAILY, (Reported) Levothyroxine Sodium (Levothyroxine Sodium) 75 Mcg Tablet, 75 MCG PO DAILY, (Reported) Losartan Potassium (Losartan Potassium) 100 Mg Tablet, 100 MG PO DAILY, (Reported) Melatonin (Melatonin) 5 Mg Tablet, 5 MG PO QHS, (Reported) Metoprolol Succinate (Metoprolol Succinate) 100 Mg Tab, 100 MG PO DAILY, (Reported) Paroxetine HCl (Paroxetine HCl) 20 Mg Tablet, 20 MG PO DAILY, (Reported) Spironolactone (Spironolactone) 25 Mg Tablet, 25 MG PO DAILY, (Reported) Torsemide (Torsemide) 20 Mg Tablet, 10 MG PO DAILY, (Reported) Scheduled PRN Dicyclomine HCl (Dicyclomine HCl) 10 Mg Cap, 10 MG PO DAILY PRN for STOMACH SPRING TESTER MPS, (Reported) Allergies Coded Allergies: Penicillins (Verified Allergy, Mild, per pcp note 11/30/20 not allergic to penicillin, 03/28/21) Cephalosporins (Verified Allergy, Unknown, 03/24/21) ciprofloxacin (Verified Allergy, Unknown, 03/24/21) Xbecvrv-Lfz-Rob Reductase Inhibitor (Verified Adverse Reaction, Intermediate, myopathy, 03/28/21) lisinopril (Verified Adverse Reaction, Intermediate, cough, 03/28/21) amlodipine (Verified Adverse Reaction, Unknown, edema, 03/28/21) BHAVANA FULLER DO Mar 31, 2021 13:16
== END 2021-03-31 11:30 | disposition home health service (06) | DRG 383 ==
LOC: M ED 16:57 → M ED INP 20:23 → M PCU 03-28 01:40 → M MS5PR 03-28 11:10
PROVIDERS: ADMIT Family Medicine; ATTEND Internal Medicine
PROC: 0H9MXZX Drainage of Right Foot Skin, External Approach, Diagnostic (ICD-10-PCS; principal; 2021-03-28)
DX: L03.115 Cellulitis of right lower limb (principal); E11.22 Type 2 diabetes mellitus with diabetic chronic kidney disease; E11.42 Type 2 diabetes mellitus with diabetic polyneuropathy; E11.319 Type 2 diabetes mellitus with unspecified diabetic retinopathy without macular edema; N18.30 Chronic kidney disease, stage 3 unspecified; F32.9 Major depressive disorder, single episode, unspecified; F41.9 Anxiety disorder, unspecified; B95.61 Methicillin susceptible Staphylococcus aureus infection as the cause of diseases classified elsewhere; I12.9 Hypertensive chronic kidney disease with stage 1 through stage 4 chronic kidney disease, or unspecified chronic kidney disease; E78.5 Hyperlipidemia, unspecified; I16.0 Hypertensive urgency; E03.9 Hypothyroidism, unspecified; E66.9 Obesity, unspecified; Z68.34 Body mass index [BMI] 34.0-34.9, adult; Z79.4 Long term (current) use of insulin; Z20.822 Contact with and (suspected) exposure to COVID-19; Z79.82 Long term (current) use of aspirin; Z88.0 Allergy status to penicillin; Z88.1 Allergy status to other antibiotic agents; Z90.49 Acquired absence of other specified parts of digestive tract; Z98.49 Cataract extraction status, unspecified eye

== ENCOUNTER → 2021-04-03 | Outpatient (REF) | payer OTHER ==
[~2021-04-03] MED LIST changes: +CEPH500T PO; +CLIN150C15 PO; +DOXY-259 PO; +FLUC150T PO; +MELA5TAB36 PO
[2021-04-03 18:27] LABS: HEMOGLOBIN 10.3 g/dl (12.0-15.5); MEAN CORPUSCULAR HEMOGLOBIN 28.6 pg (27.0-33.0); MEAN CORPUSCULAR HGB CONC 31.2 g/dl (32.0-36.5); MEAN CORPUSCULAR VOLUME 91.7 fl (80.0-96.0); PLATELET COUNT, AUTOMATED 429 10^3/uL (150-450); WHITE BLOOD COUNT 14.2 10^3/uL (4.0-10.0)
[2021-04-03 18:38] LABS: ALBUMIN 2.9 GM/DL (3.2-5.2); BILIRUBIN,TOTAL 0.2 MG/DL (0.2-1.0); CHOLESTEROL RISK RATIO 5.823 (<5); CREATININE FOR GFR 1.34 MG/DL (0.55-1.30); FREE T4 1.17 NG/DL (0.76-1.46); POTASSIUM SERUM 5.2 MEQ/L (3.5-5.1); THYROID STIMULATING HORMONE 1.8 uIU/ML (0.358-3.740); TOTAL 25(OH) VITAMIN D 55.6 NG/ML (30.0-100.0); TOTAL PROTEIN 5.9 GM/DL (6.4-8.2)
[2021-04-03 19:36] LABS: HEMOGLOBIN A1c 8.6 %
== END ==
LOC: M SFHCADAM 13:04
PROVIDERS: ATTEND Family Medicine
DX: N18.30 Chronic kidney disease, stage 3 unspecified (principal); E11.9 Type 2 diabetes mellitus without complications; E03.9 Hypothyroidism, unspecified; E04.1 Nontoxic single thyroid nodule; E78.5 Hyperlipidemia, unspecified; E55.9 Vitamin D deficiency, unspecified

== ENCOUNTER → 2021-04-07 | Outpatient (CLI) | payer OTHER ==
[~2021-04-07] MED LIST changes: -DOXY100C37 PO; +DOXY1CAP62 PO; +ERGO500029 PO
[2021-04-07 17:43] LABS: BASO # 0.1 10^3/uL (0.0-0.2); BASO % 0.9 % (0.0-1.0); EOS # 0.3 10^3/uL (0.0-0.5); EOS % 2.3 % (0.0-3.0); HEMATOCRIT 37.8 % (36.0-47.0); HEMOGLOBIN 12.1 g/dl (12.0-15.5); LYMPH # 2.8 10^3/uL (1.5-5.0); LYMPH % 20.2 % (24.0-44.0); MEAN CORPUSCULAR HEMOGLOBIN 28.8 pg (27.0-33.0); MONO # 0.9 10^3/uL (0.0-0.8); MONO % 6.4 % (2.0-8.0); NEUTROPHILS # 9.4 10^3/uL (1.5-8.5); NEUTROPHILS % 68.4 % (36.0-66.0); PLATELET COUNT, AUTOMATED 381 10^3/uL (150-450); WHITE BLOOD COUNT 13.7 10^3/uL (4.0-10.0)
[2021-04-07 20:31] LABS: ERYTHROCYTE SEDIMENTATION RATE 67 mm/hr (0-30)
== END ==
LOC: M LAB 16:05
PROVIDERS: ATTEND Podiatrist Foot & Ankle Surgery
DX: L03.115 Cellulitis of right lower limb (principal)

== ENCOUNTER → 2021-04-14 | Outpatient (CLI) | payer OTHER ==
[2021-04-14 15:58] LABS: BASO # 0.1 10^3/uL (0.0-0.2); BASO % 0.9 % (0.0-1.0); EOS # 0.3 10^3/uL (0.0-0.5); EOS % 2.5 % (0.0-3.0); HEMATOCRIT 33.5 % (36.0-47.0); HEMOGLOBIN 10.9 g/dl (12.0-15.5); LYMPH # 2.4 10^3/uL (1.5-5.0); LYMPH % 20.6 % (24.0-44.0); MEAN CORPUSCULAR HEMOGLOBIN 29.1 pg (27.0-33.0); MEAN CORPUSCULAR HGB CONC 32.5 g/dl (32.0-36.5); MEAN CORPUSCULAR VOLUME 89.3 fl (80.0-96.0); MONO # 0.8 10^3/uL (0.0-0.8); MONO % 6.4 % (2.0-8.0); NEUTROPHILS # 8.2 10^3/uL (1.5-8.5); PLATELET COUNT, AUTOMATED 324 10^3/uL (150-450); RED BLOOD COUNT 3.75 10^6/uL (4.00-5.40); WHITE BLOOD COUNT 11.8 10^3/uL (4.0-10.0)
[2021-04-14 17:13] LABS: ERYTHROCYTE SEDIMENTATION RATE 64 mm/hr (0-30)
== END ==
LOC: M LAB 15:06
PROVIDERS: ATTEND Podiatrist Foot & Ankle Surgery
DX: L03.115 Cellulitis of right lower limb (principal)

== ENCOUNTER → 2021-07-26 | Outpatient (REF) | payer OTHER ==
[~2021-07-26] MED LIST changes: -CLIN150C15 PO; +CLIN150C17 PO
== END ==
LOC: M LAB REF 15:49
PROVIDERS: ATTEND Physician Assistant Medical
DX: H60.8X1 Other otitis externa, right ear (principal)

== ENCOUNTER → 2021-08-28 | Outpatient (REF) | payer OTHER ==
[~2021-08-28] MED LIST changes: +DOXY-443 PO; -DOXY1CAP62 PO
[2021-08-28 17:13] LABS: HEMATOCRIT 36.2 % (36.0-47.0); HEMOGLOBIN 11.7 g/dl (12.0-15.5); MEAN CORPUSCULAR HEMOGLOBIN 28.9 pg (27.0-33.0); MEAN CORPUSCULAR HGB CONC 32.3 g/dl (32.0-36.5); MEAN CORPUSCULAR VOLUME 89.4 fl (80.0-96.0); PLATELET COUNT, AUTOMATED 286 10^3/uL (150-450); RED BLOOD COUNT 4.05 10^6/uL (4.00-5.40); WHITE BLOOD COUNT 11.7 10^3/uL (4.0-10.0)
[2021-08-28 17:32] LABS: HEMOGLOBIN A1c 8.8 %
[2021-08-28 17:34] LABS: ALBUMIN 2.9 GM/DL (3.2-5.2); BILIRUBIN,TOTAL 0.3 MG/DL (0.2-1.0); CALCIUM LEVEL 8.8 MG/DL (8.8-10.2); CREATININE FOR GFR 1.61 MG/DL (0.55-1.30); GLOMERULAR FILTRATION RATE 34.6 (>45); POTASSIUM SERUM 4.8 MEQ/L (3.5-5.1)
== END ==
LOC: M SFHCADAM 11:55
PROVIDERS: ATTEND Family Medicine
DX: L97.516 Non-pressure chronic ulcer of other part of right foot with bone involvement without evidence of necrosis (principal); E08.621 Diabetes mellitus due to underlying condition with foot ulcer

== ENCOUNTER → 2021-08-30 | Outpatient (REF) | payer OTHER | LOC: M SFHCADAM 16:25 | PROVIDERS: ATTEND Family Medicine | DX: J06.9 Acute upper respiratory infection, unspecified (principal) ==

== ENCOUNTER → 2021-10-27 | Outpatient (REF) | payer OTHER ==
[~2021-10-27] MED LIST changes: +LOSA100T45 PO; -LOSA100T50 PO
== END ==
LOC: M LAB REF 15:24
PROVIDERS: ATTEND Physician Assistant Medical
DX: H66.41 Suppurative otitis media, unspecified, right ear (principal)

== ENCOUNTER → 2021-11-21 | Outpatient (CLI) | payer OTHER ==
[~2021-11-21] MED LIST changes: -FLUC150T PO; +FLUC150T9 PO
== END ==
LOC: M PLAIMG 12:32
PROVIDERS: ATTEND Physician Assistant Medical
DX: H92.11 Otorrhea, right ear (principal)

== ENCOUNTER → 2021-11-27 | Outpatient (REF) | payer OTHER ==
[2021-11-28 13:15] LABS: CALCIUM LEVEL 9.5 MG/DL (8.8-10.2); CREATININE FOR GFR 1.84 MG/DL (0.55-1.30); GLOMERULAR FILTRATION RATE 29.7 (>45); POTASSIUM SERUM 5.1 MEQ/L (3.5-5.1)
[2021-11-28 13:46] LABS: HEMOGLOBIN A1c 8.1 %
== END ==
LOC: M SFHCADAM 15:28
PROVIDERS: ATTEND Family Medicine
DX: E11.9 Type 2 diabetes mellitus without complications (principal)

== ENCOUNTER → 2021-11-28 | Outpatient (REF) | payer OTHER | LOC: M LAB REF 17:33 | PROVIDERS: ATTEND Otolaryngology | DX: Z96.22 Myringotomy tube(s) status (principal); H92.11 Otorrhea, right ear; H72.01 Central perforation of tympanic membrane, right ear ==

== ENCOUNTER → 2022-03-02 | Outpatient (REF) | payer OTHER ==
[2022-03-02 13:57] LABS: HEMATOCRIT 35.6 % (36.0-47.0); HEMOGLOBIN 11.4 g/dl (12.0-15.5); MEAN CORPUSCULAR HEMOGLOBIN 29.2 pg (27.0-33.0); MEAN CORPUSCULAR VOLUME 91.3 fl (80.0-96.0); PLATELET COUNT, AUTOMATED 320 10^3/uL (150-450); WHITE BLOOD COUNT 11.4 10^3/uL (4.0-10.0)
[2022-03-02 14:07] LABS: BILIRUBIN,TOTAL 0.3 MG/DL (0.2-1.0); CALCIUM LEVEL 9.4 MG/DL (8.8-10.2); CHOLESTEROL RISK RATIO 8.343 (<5); CREATININE FOR GFR 1.6 MG/DL (0.55-1.30); FREE T4 0.95 NG/DL (0.76-1.46); GLOMERULAR FILTRATION RATE 34.9 (>45); POTASSIUM SERUM 4.5 MEQ/L (3.5-5.1); THYROID STIMULATING HORMONE 2.6 uIU/ML (0.358-3.740); TOTAL PROTEIN 5.9 GM/DL (6.4-8.2)
[2022-03-02 14:11] LABS: TOTAL 25(OH) VITAMIN D 30.1 NG/ML (30.0-100.0)
[2022-03-02 15:15] LABS: HEMOGLOBIN A1c 9.1 %
== END ==
LOC: M SFHCADAM 11:12
PROVIDERS: ATTEND Family Medicine
DX: N18.30 Chronic kidney disease, stage 3 unspecified (principal); E55.9 Vitamin D deficiency, unspecified; E11.9 Type 2 diabetes mellitus without complications; E03.9 Hypothyroidism, unspecified; E78.5 Hyperlipidemia, unspecified